=== PATIENT | female | born 1940 | race African-American/Black ===

== ENCOUNTER 2019-06-09 12:53 | Observation (INO) ==
[2019-06-09 13:58] LABS: Basophils % 0.3 % (0.0-0.8); Eosinophils % 0.3 % (0.00-10.9); Hematocrit 39.8 VOL% (35.7-47.0); Hemoglobin 13.3 GM/DL (12.0-16.0); Immature Granulocytes % 0.5 %; Immature Granulocytes Absolute 0.05 #; Lymphocytes # 2.2 10*3/uL (1.4-4.0); Lymphocytes % 21.2 % (21.3-54.2); Mean Corpuscular HGB Conc 33.4 GM/DL (32-36); Mean Corpuscular Volume 96.8 FL (87-102); Mean Platelet Volume 11.3 FL (9.6-12.0); Monocytes % 9.2 % (1.7-12.7); Neutrophils % 68.5 % (38.7-73.9); Platelet Count 166 T/CUMM (130-400); Red Blood Count 4.11 MC/CUMM (3.8-5.5); Red Cell Distribution Width 14.7 % (9.3-17.3); White Blood Count 10.5 T/CUMM (4-12)
[2019-06-09 14:16] LABS: INR 1.1; PT Patient Result 11.8 SECS
[2019-06-09 14:18] LABS: Albumin 3.2 G/DL (3.4-5.0); Bilirubin,Total 0.7 MG/DL (0.2-1.0); Osmolality,Calculated 290.7 MOS/KG (273-304); Total Protein 5.9 G/DL (6.4-8.3)
[2019-06-09] MEDS ORDERED: ALBUTEROL 2.5 MG/3 ML NEB RESP TX STA ×2 (16:16→17:21)
[2019-06-09] MEDS ORDERED: methylPREDNISolone SOD SUC 125 MG/2 ML VIAL IV STA (16:17)
[2019-06-09] MEDS ORDERED: ENOXAPARIN 100 MG/ML SYRINGE SUBCUT STA (17:36)
[2019-06-09] MEDS ORDERED: ALBUTEROL 2.5 MG/3 ML NEB RESP TX PRN (17:39)
[2019-06-09] MEDS ORDERED: ONDANSETRON 4 MG/2 ML VIAL IV PRN (18:41)
[2019-06-09] MEDS ORDERED: ACETAMINOPHEN 325 MG TABLET PO PRN (18:41)
[2019-06-09] MEDS ORDERED: SODIUM CHLORIDE 0.9% 1,000 ML IV SCH (18:41)
[2019-06-09] MEDS ORDERED: POLYVINYL ALCOHOL 1.4% OPH SOLN 15 ML BOTTLE BOTH EYES PRN (20:11)
[2019-06-09] MEDS ORDERED: LIFITEGRAST BOTH EYES SCH (21:00)
[2019-06-09] MEDS: BUDESONIDE/FORMOTEROL 160-4.5 INHALER 6 GM INH SCH (22:18)
[2019-06-09] MEDS: DOCUSATE SODIUM 100 MG CAPSULE PO SCH (22:19)
[2019-06-09] MEDS: MONTELUKAST 10 MG TABLET PO SCH (22:19)
[2019-06-09] MEDS: AZITHROMYCIN INJ 250 MG in SODIUM CHLORIDE 0.9% 250 ML IV SCH (22:19)
[2019-06-10] MEDS: ALBUTEROL/IPRATROPIUM 3 ML NEB RESP TX SCH ×4 (00:08→18:59)
[2019-06-10] MEDS ORDERED: BENZOCAINE/MENTHOL LOZENGE 18/BOX PO PRN (02:17)
[2019-06-10] MEDS: methylPREDNISolone SOD SUC 40 MG/1 ML VIAL IV SCH ×3 (03:18→15:33)
[2019-06-10 07:24] LABS: Calcium 8.2 MG/DL (8.5-10.1)
[2019-06-10] MEDS: SPIRONOLACTONE 25 MG TABLET PO SCH (08:58)
[2019-06-10] MEDS: CALCIUM CARBONATE CHEW 500 MG TABLET PO SCH (08:58)
[2019-06-10] MEDS: PANTOPRAZOLE 40 MG TABLET PO SCH (08:58)
[2019-06-10] MEDS: CLOPIDOGREL 75 MG TABLET PO SCH (08:58)
[2019-06-10] MEDS: ASPIRIN EC 81 MG TABLET PO SCH (08:58)
[2019-06-10] MEDS: DOCUSATE SODIUM 100 MG CAPSULE PO SCH ×2 (08:58→21:15)
[2019-06-10] MEDS: tiZANidine 4 MG TABLET PO SCH (08:58)
[2019-06-10] MEDS: CETIRIZINE 10 MG TABLET PO SCH (08:59)
[2019-06-10] MEDS: METOPROLOL SUCCINATE XL 25 MG TABLET PO SCH (08:59)
[2019-06-10] MEDS: FLUTICASONE 50 MCG NASAL SPRAY 16 GM BOTTLE BOTH NARES SCH (09:01)
[2019-06-10] MEDS: BUDESONIDE/FORMOTEROL 160-4.5 INHALER 6 GM INH SCH ×2 (09:08→22:27)
[2019-06-10] MEDS ORDERED: FUROSEMIDE 40 MG/4 ML VIAL IV ONE (14:19)
[2019-06-10] MEDS ORDERED: MAGNESIUM SULF RIDER 2 GM in PREMIX 1 EACH IV PRN (14:21)
[2019-06-10] MEDS ORDERED: POTASSIUM CHLORIDE RIDER 10 MEQ in PREMIX 1 EACH IV PRN (14:21)
[2019-06-10] MEDS: MONTELUKAST 10 MG TABLET PO SCH (21:15)
[2019-06-10] MEDS: AZITHROMYCIN INJ 250 MG in SODIUM CHLORIDE 0.9% 250 ML IV SCH (21:15)
[2019-06-11] MEDS ORDERED: DIAZEPAM 5 MG TABLET PO ONE (00:01)
[2019-06-11] MEDS ORDERED: diphenhydrAMINE CAP 25 MG CAPSULE PO ONE (00:01)
[2019-06-11] MEDS: ALBUTEROL/IPRATROPIUM 3 ML NEB RESP TX SCH ×4 (00:13→21:15)
[2019-06-11] MEDS: methylPREDNISolone SOD SUC 40 MG/1 ML VIAL IV SCH ×3 (01:21→22:09)
[2019-06-11 03:07] LABS: Basophils % 0.1 % (0.0-0.8); Hematocrit 39.7 VOL% (35.7-47.0); Immature Granulocytes % 0.6 %; Immature Granulocytes Absolute 0.11 #; Lymphocytes # 1.3 10*3/uL (1.4-4.0); Lymphocytes % 7.5 % (21.3-54.2); Mean Corpuscular HGB Conc 32.7 GM/DL (32-36); Mean Corpuscular Volume 97.1 FL (87-102); Mean Platelet Volume 11.3 FL (9.6-12.0); Monocytes % 5.2 % (1.7-12.7); Neutrophils % 86.6 % (38.7-73.9); Platelet Count 176 T/CUMM (130-400); Red Blood Count 4.09 MC/CUMM (3.8-5.5); Red Cell Distribution Width 14.8 % (9.3-17.3); White Blood Count 17.7 T/CUMM (4-12)
[2019-06-11 03:23] LABS: Calcium 8.5 MG/DL (8.5-10.1); Osmolality,Calculated 290.8 MOS/KG (273-304)
[2019-06-11] MEDS: ASPIRIN EC 81 MG TABLET PO SCH (09:23)
[2019-06-11] MEDS: METOPROLOL SUCCINATE XL 25 MG TABLET PO SCH (09:23)
[2019-06-11] MEDS: CLOPIDOGREL 75 MG TABLET PO SCH (09:23)
[2019-06-11] MEDS: PANTOPRAZOLE 40 MG TABLET PO SCH (09:23)
[2019-06-11] MEDS: DOCUSATE SODIUM 100 MG CAPSULE PO SCH ×2 (09:31→22:09)
[2019-06-11] MEDS: BUDESONIDE/FORMOTEROL 160-4.5 INHALER 6 GM INH SCH ×2 (09:31→22:15)
[2019-06-11] MEDS: FLUTICASONE 50 MCG NASAL SPRAY 16 GM BOTTLE BOTH NARES SCH (09:31)
[2019-06-11] MEDS: SPIRONOLACTONE 25 MG TABLET PO SCH (09:32)
[2019-06-11] MEDS: CALCIUM CARBONATE CHEW 500 MG TABLET PO SCH (09:32)
[2019-06-11] MEDS: tiZANidine 4 MG TABLET PO SCH (09:33)
[2019-06-11] MEDS: CETIRIZINE 10 MG TABLET PO SCH (09:33)
[2019-06-11] MEDS ORDERED: DIAZEPAM 5 MG TABLET ONE (10:14)
[2019-06-11] MEDS ORDERED: diphenhydrAMINE CAP 25 MG CAPSULE ONE (10:15)
[2019-06-11] MEDS ORDERED: HYDROmorphone 2 MG/1 ML VIAL ONE (10:33)
[2019-06-11] MEDS ORDERED: MIDAZOLAM 2 MG/2 ML VIAL ONE (10:33)
[2019-06-11] MEDS ORDERED: LIDOCAINE 1% 20 ML VIAL ONE (10:34)
[2019-06-11] MEDS: MONTELUKAST 10 MG TABLET PO SCH (22:09)
[2019-06-11] MEDS: AZITHROMYCIN INJ 250 MG in SODIUM CHLORIDE 0.9% 250 ML IV SCH (22:13)
[2019-06-12] MEDS: ALBUTEROL/IPRATROPIUM 3 ML NEB RESP TX SCH ×3 (00:48→13:47)
[2019-06-12] MEDS: methylPREDNISolone SOD SUC 40 MG/1 ML VIAL IV SCH ×2 (06:14→12:27)
[2019-06-12] MEDS: CALCIUM CARBONATE CHEW 500 MG TABLET PO SCH (09:33)
[2019-06-12] MEDS: tiZANidine 4 MG TABLET PO SCH (09:33)
[2019-06-12] MEDS: CLOPIDOGREL 75 MG TABLET PO SCH (09:34)
[2019-06-12] MEDS: DOCUSATE SODIUM 100 MG CAPSULE PO SCH (09:34)
[2019-06-12] MEDS: CETIRIZINE 10 MG TABLET PO SCH (09:34)
[2019-06-12] MEDS: METOPROLOL SUCCINATE XL 25 MG TABLET PO SCH (09:34)
[2019-06-12] MEDS: PANTOPRAZOLE 40 MG TABLET PO SCH (09:34)
[2019-06-12] MEDS: ASPIRIN EC 81 MG TABLET PO SCH (09:34)
[2019-06-12] MEDS: SPIRONOLACTONE 25 MG TABLET PO SCH (09:34)
[2019-06-12] MEDS: FLUTICASONE 50 MCG NASAL SPRAY 16 GM BOTTLE BOTH NARES SCH (09:35)
[2019-06-12] MEDS: BUDESONIDE/FORMOTEROL 160-4.5 INHALER 6 GM INH SCH (09:35)
[2019-06-12 12:38] VITALS: BP 140/69
== END 2019-06-12 16:20 | disposition home health service (06) ==
LOC: N.ED 12:53 → N.EDINP 12:53 → N.TELEN 17:48
PROVIDERS: ADMIT Family Medicine; ATTEND Family Medicine
PROC: CLCCHCL (ICD-10-PCS; 2019-06-11 10:45)

== ENCOUNTER 2019-10-20 11:09 | Inpatient (IN) ==
[2019-10-20] MEDS ORDERED: ONDANSETRON 4 MG/2 ML VIAL IV STA (11:38)
[2019-10-20] MEDS ORDERED: FUROSEMIDE 40 MG/4 ML VIAL IV STA (11:38)
[2019-10-20] MEDS ORDERED: DILTIAZEM 50 MG/10 ML VIAL IV STA (11:49)
[2019-10-20 11:59] LABS: Basophils % 0.3 % (0.0-0.8); Eosinophils % 0.1 % (0.00-10.9); Hematocrit 46.5 VOL% (35.7-47.0); Hemoglobin 15.5 GM/DL (12.0-16.0); Immature Granulocytes % 0.5 %; Immature Granulocytes Absolute 0.07 #; Lymphocytes # 2.7 10*3/uL (1.4-4.0); Lymphocytes % 19.8 % (21.3-54.2); Mean Corpuscular HGB Conc 33.3 GM/DL (32-36); Mean Corpuscular Volume 97.9 FL (87-102); Mean Platelet Volume 11.2 FL (9.6-12.0); Monocytes % 7.8 % (1.7-12.7); NRBC # 0.02 10*3/uL; Neutrophils % 71.5 % (38.7-73.9); Platelet Count 146 T/CUMM (130-400); Red Blood Count 4.75 MC/CUMM (3.8-5.5); Red Cell Distribution Width 15.5 % (9.3-17.3); White Blood Count 13.4 T/CUMM (4-12)
[2019-10-20] MEDS ORDERED: dilTIAZem Drip 125 MG/125 ML PREMIX IV SCH (12:00)
[2019-10-20 12:14] LABS: INR 1.3; PT Patient Result 14.3 SECS (9.6-12.2)
[2019-10-20 12:20] LABS: Albumin 3.8 G/DL (3.4-5.0); Bilirubin,Total 1.1 MG/DL (0.2-1.0); Calcium 8.5 MG/DL (8.5-10.1); Osmolality,Calculated 278.7 MOS/KG (273-304); Total Protein 6.7 G/DL (6.4-8.3)
[2019-10-20 14:37] LABS: Amorphous Crystals,Urine Occasional /HPF (Few); Apearance,Urine CLEAR (Clear); Bacteria,Urine Occasional /HPF (Few); Bilirubin,Urine Negative (Negative); Blood, Urine Negative (Negative); Glucose,Urine (UA) Negative (Negative); Hyaline Casts,Urine 7 /LPF (0-3); Ketones,Urine Negative (Negative); Mucus,Urine Occasional /LPF (Occasional); Nitrite,Urine Negative (Negative); Protein,Urine 30 MG/DL; RBC,Urine 3 /HPF (0-4); Squamous Epithelial Cell,Urine Occasional /HPF (0-10); Urine Color Straw (Yellow); Urine Specific Gravity 1.006 (1.001-1.035); Urine Urobilinogen < 2.0 EU/DL (0.2-1.0); WBC,Urine <1 /HPF (0-6)
[2019-10-20] MEDS ORDERED: ENOXAPARIN 100 MG/ML SYRINGE SUBCUT STA (15:19)
[2019-10-20] MEDS ORDERED: SODIUM CHLORIDE 0.9% 1,000 ML IV SCH (17:54)
[2019-10-20] MEDS ORDERED: MORPHINE 4 MG/1 ML VIAL IV PRN (17:54)
[2019-10-20] MEDS ORDERED: ACETAMINOPHEN 325 MG TABLET PO PRN (17:54)
[2019-10-20] MEDS ORDERED: tiZANidine 4 MG TABLET PO PRN (17:54)
[2019-10-20] MEDS ORDERED: DENOSUMAB 60 MG/ML SYRINGE SUBCUT SCH (17:54)
[2019-10-20] MEDS ORDERED: DICLOFENAC 1% GEL 100 GM TUBE TOP PRN (17:54)
[2019-10-20] MEDS ORDERED: POLYVINYL ALCOHOL 1.4% OPH SOLN 15 ML BOTTLE BOTH EYES PRN (17:54)
[2019-10-20] MEDS ORDERED: ALBUTEROL 2.5 MG/3 ML NEB RESP TX PRN (17:54)
[2019-10-20] MEDS ORDERED: [UNRECOGNIZED DRUG - OTHER] PO SCH (19:00)
[2019-10-20] MEDS: dilTIAZem Drip 125 MG/125 ML PREMIX IV SCH (20:29)
[2019-10-20] MEDS: BUDESONIDE/FORMOTEROL 160-4.5 INHALER 6 GM INH SCH (20:30)
[2019-10-20] MEDS: MONTELUKAST 10 MG TABLET PO SCH (20:33)
[2019-10-20] MEDS: DOCUSATE SODIUM 100 MG CAPSULE PO SCH (20:33)
[2019-10-21] MEDS: ALBUTEROL/IPRATROPIUM 3 ML NEB RESP TX PRN ×2 (00:58→15:54)
[2019-10-21 05:58] LABS: Basophils % 0.3 % (0.0-0.8); Eosinophils % 0.1 % (0.00-10.9); Hematocrit 42.9 VOL% (35.7-47.0); Hemoglobin 14.3 GM/DL (12.0-16.0); Immature Granulocytes % 0.5 %; Immature Granulocytes Absolute 0.06 #; Lymphocytes # 2.7 10*3/uL (1.4-4.0); Lymphocytes % 23.5 % (21.3-54.2); Mean Corpuscular HGB Conc 33.3 GM/DL (32-36); Mean Corpuscular Volume 97.7 FL (87-102); Mean Platelet Volume 11.6 FL (9.6-12.0); Monocytes % 9.1 % (1.7-12.7); NRBC # 0.04 10*3/uL; Neutrophils % 66.5 % (38.7-73.9); Platelet Count 138 T/CUMM (130-400); Red Blood Count 4.39 MC/CUMM (3.8-5.5); Red Cell Distribution Width 15.7 % (9.3-17.3); White Blood Count 11.6 T/CUMM (4-12)
[2019-10-21 06:21] LABS: Albumin 3.5 G/DL (3.4-5.0); Bilirubin,Total 0.9 MG/DL (0.2-1.0); Calcium 8.1 MG/DL (8.5-10.1); Osmolality,Calculated 283.4 MOS/KG (273-304); Risk Ratio 3.41; Total Protein 6.6 G/DL (6.4-8.3); VLDL CHOLESTEROL 14.8 MG/DL
[2019-10-21 08:56] LABS: CKMB % 2.8 %
[2019-10-21] MEDS: CETIRIZINE 10 MG TABLET PO SCH (08:57)
[2019-10-21] MEDS: ASPIRIN EC 81 MG TABLET PO SCH (08:57)
[2019-10-21] MEDS: NEBIVOLOL 10 MG TABLET PO SCH (08:57)
[2019-10-21] MEDS: DOCUSATE SODIUM 100 MG CAPSULE PO SCH ×2 (08:57→21:22)
[2019-10-21] MEDS: SPIRONOLACTONE 25 MG TABLET PO SCH (08:57)
[2019-10-21] MEDS: PANTOPRAZOLE 40 MG TABLET PO SCH (08:57)
[2019-10-21 08:58] LABS: Troponin I 0.129 NG/ML (0.00-0.045)
[2019-10-21] MEDS: CALCIUM CARBONATE CHEW 500 MG TABLET PO SCH (08:58)
[2019-10-21] MEDS: FLUTICASONE 50 MCG NASAL SPRAY 16 GM BOTTLE BOTH NARES SCH (08:58)
[2019-10-21] MEDS: CHOLECALCIFEROL 1,000 UNIT TABLET PO SCH (08:58)
[2019-10-21] MEDS: BUDESONIDE/FORMOTEROL 160-4.5 INHALER 6 GM INH SCH ×2 (08:58→21:22)
[2019-10-21] MEDS ORDERED: CARBAMIDE PEROXIDE BOTH EARS SCH (09:00)
[2019-10-21] MEDS ORDERED: [UNRECOGNIZED DRUG - OTHER] PO SCH (09:00)
[2019-10-21] MEDS ORDERED: ENOXAPARIN 40 MG/0.4 ML SYRINGE SUBCUT SCH (09:00)
[2019-10-21] MEDS ORDERED: CRANBERRY EXTRACT VITAMIN C PO SCH (09:00)
[2019-10-21] MEDS ORDERED: [UNRECOGNIZED DRUG - OTHER] PO SCH (09:00)
[2019-10-21 11:39] LABS: CKMB % 2.8 %
[2019-10-21 11:41] LABS: Troponin I 0.125 NG/ML (0.00-0.045)
[2019-10-21] MEDS: dilTIAZem Drip 125 MG/125 ML PREMIX IV SCH (21:20)
[2019-10-21] MEDS: APIXABAN 5 MG TABLET PO SCH (21:21)
[2019-10-21] MEDS: DILTIAZEM CD 120 MG CAPSULE PO SCH (21:21)
[2019-10-21] MEDS: MONTELUKAST 10 MG TABLET PO SCH (21:24)
[2019-10-21] MEDS: BUMETANIDE 1 MG/4 ML VIAL IV SCH (21:25)
[2019-10-21] MEDS: ONDANSETRON 4 MG/2 ML VIAL IV PRN (23:36)
[2019-10-21] MEDS: BISACODYL 5 MG TABLET PO PRN (23:48)
[2019-10-22] MEDS: ALBUTEROL/IPRATROPIUM 3 ML NEB RESP TX PRN ×5 (04:00→23:48)
[2019-10-22 07:00] LABS: Basophils % 0.2 % (0.0-0.8); Hematocrit 45.6 VOL% (35.7-47.0); Hemoglobin 15.4 GM/DL (12.0-16.0); Immature Granulocytes % 0.8 %; Immature Granulocytes Absolute 0.13 #; Lymphocytes # 1.7 10*3/uL (1.4-4.0); Lymphocytes % 10.6 % (21.3-54.2); Mean Corpuscular HGB Conc 33.8 GM/DL (32-36); Mean Corpuscular Volume 97.9 FL (87-102); Mean Platelet Volume 12.2 FL (9.6-12.0); Monocytes % 6.9 % (1.7-12.7); NRBC # 0.07 10*3/uL; Neutrophils % 81.5 % (38.7-73.9); Platelet Count 128 T/CUMM (130-400); Red Blood Count 4.66 MC/CUMM (3.8-5.5); Red Cell Distribution Width 15.9 % (9.3-17.3); White Blood Count 16.3 T/CUMM (4-12)
[2019-10-22 07:06] LABS: Platelet Estimate Adequate
[2019-10-22 07:07] LABS: Anisocytosis Slight
[2019-10-22 07:08] LABS: Calcium 8.3 MG/DL (8.5-10.1); Osmolality,Calculated 280.7 MOS/KG (273-304)
[2019-10-22] MEDS: PANTOPRAZOLE 40 MG TABLET PO SCH (09:07)
[2019-10-22] MEDS: CHOLECALCIFEROL 1,000 UNIT TABLET PO SCH (09:08)
[2019-10-22] MEDS: NEBIVOLOL 10 MG TABLET PO SCH (09:08)
[2019-10-22] MEDS: DILTIAZEM CD 120 MG CAPSULE PO SCH ×2 (09:08→20:53)
[2019-10-22] MEDS: DOCUSATE SODIUM 100 MG CAPSULE PO SCH ×2 (09:09→20:53)
[2019-10-22] MEDS: ASPIRIN EC 81 MG TABLET PO SCH (09:09)
[2019-10-22] MEDS: CALCIUM CARBONATE CHEW 500 MG TABLET PO SCH (09:09)
[2019-10-22] MEDS: CETIRIZINE 10 MG TABLET PO SCH (09:09)
[2019-10-22] MEDS: SPIRONOLACTONE 25 MG TABLET PO SCH (09:10)
[2019-10-22] MEDS: BUMETANIDE 1 MG/4 ML VIAL IV SCH ×2 (09:10→17:00)
[2019-10-22] MEDS: APIXABAN 5 MG TABLET PO SCH ×2 (09:10→20:54)
[2019-10-22] MEDS: FLUTICASONE 50 MCG NASAL SPRAY 16 GM BOTTLE BOTH NARES SCH (09:13)
[2019-10-22] MEDS: BUDESONIDE/FORMOTEROL 160-4.5 INHALER 6 GM INH SCH ×2 (09:14→20:54)
[2019-10-22] MEDS: MONTELUKAST 10 MG TABLET PO SCH (20:53)
[2019-10-22] MEDS: dilTIAZem Drip 125 MG/125 ML PREMIX IV SCH (20:54)
[2019-10-23] MEDS: ALBUTEROL/IPRATROPIUM 3 ML NEB RESP TX PRN ×3 (03:41→22:37)
[2019-10-23] MEDS: BUDESONIDE/FORMOTEROL 160-4.5 INHALER 6 GM INH SCH ×2 (09:10→21:20)
[2019-10-23] MEDS: FLUTICASONE 50 MCG NASAL SPRAY 16 GM BOTTLE BOTH NARES SCH (09:10)
[2019-10-23] MEDS ORDERED: ETOMIDATE 40 MG/20 ML VIAL IV ONE (14:48)
[2019-10-23] MEDS ORDERED: propofoL 200 MG/20 ML VIAL IV ONE (14:48)
[2019-10-23] MEDS ORDERED: LIDOCAINE 2% 5 ML VIAL ONE (14:48)
[2019-10-23] MEDS: BUMETANIDE 1 MG/4 ML VIAL IV SCH ×2 (17:04→17:55)
[2019-10-23] MEDS: APIXABAN 5 MG TABLET PO SCH ×2 (17:05→21:20)
[2019-10-23] MEDS: DOCUSATE SODIUM 100 MG CAPSULE PO SCH ×2 (17:05→21:20)
[2019-10-23] MEDS: NEBIVOLOL 10 MG TABLET PO SCH (17:22)
[2019-10-23] MEDS: ASPIRIN EC 81 MG TABLET PO SCH (17:22)
[2019-10-23] MEDS: CALCIUM CARBONATE CHEW 500 MG TABLET PO SCH (17:22)
[2019-10-23] MEDS: PANTOPRAZOLE 40 MG TABLET PO SCH (17:22)
[2019-10-23] MEDS: CHOLECALCIFEROL 1,000 UNIT TABLET PO SCH (17:23)
[2019-10-23] MEDS: CETIRIZINE 10 MG TABLET PO SCH (17:23)
[2019-10-23] MEDS: DILTIAZEM CD 120 MG CAPSULE PO SCH (18:21)
[2019-10-23] MEDS: SPIRONOLACTONE 25 MG TABLET PO SCH (18:21)
[2019-10-23] MEDS: ONDANSETRON 4 MG/2 ML VIAL IV PRN (21:15)
[2019-10-23] MEDS: MONTELUKAST 10 MG TABLET PO SCH (21:20)
[2019-10-23] MEDS: AMIODARONE 200 MG TABLET PO SCH (21:20)
[2019-10-23] MEDS: BISACODYL 5 MG TABLET PO PRN (21:40)
[2019-10-24] MEDS: ALBUTEROL/IPRATROPIUM 3 ML NEB RESP TX PRN ×3 (02:32→12:12)
[2019-10-24 04:46] LABS: Basophils % 0.1 % (0.0-0.8); Eosinophils % 0.1 % (0.00-10.9); Hematocrit 47.3 VOL% (35.7-47.0); Hemoglobin 15.8 GM/DL (12.0-16.0); Immature Granulocytes Absolute 0.15 #; Lymphocytes % 12.7 % (21.3-54.2); Mean Corpuscular HGB Conc 33.4 GM/DL (32-36); Mean Corpuscular Volume 96.9 FL (87-102); Mean Platelet Volume 11.3 FL (9.6-12.0); Monocytes % 11.4 % (1.7-12.7); NRBC # 0.07 10*3/uL; Neutrophils % 74.7 % (38.7-73.9); Platelet Count 150 T/CUMM (130-400); Red Blood Count 4.88 MC/CUMM (3.8-5.5); Red Cell Distribution Width 16.6 % (9.3-17.3); White Blood Count 15.5 T/CUMM (4-12)
[2019-10-24 05:21] LABS: Calcium 8.5 MG/DL (8.5-10.1); Osmolality,Calculated 279.2 MOS/KG (273-304)
[2019-10-24] MEDS: AMIODARONE 200 MG TABLET PO SCH (08:03)
[2019-10-24] MEDS: ASPIRIN EC 81 MG TABLET PO SCH (08:03)
[2019-10-24] MEDS: CALCIUM CARBONATE CHEW 500 MG TABLET PO SCH (08:03)
[2019-10-24] MEDS: APIXABAN 5 MG TABLET PO SCH (08:03)
[2019-10-24] MEDS: NEBIVOLOL 10 MG TABLET PO SCH (08:03)
[2019-10-24] MEDS: CETIRIZINE 10 MG TABLET PO SCH (08:03)
[2019-10-24] MEDS: DOCUSATE SODIUM 100 MG CAPSULE PO SCH (08:03)
[2019-10-24] MEDS: BUMETANIDE 1 MG/4 ML VIAL IV SCH ×2 (08:03→15:02)
[2019-10-24] MEDS: PANTOPRAZOLE 40 MG TABLET PO SCH (08:04)
[2019-10-24] MEDS: CHOLECALCIFEROL 1,000 UNIT TABLET PO SCH (08:05)
[2019-10-24] MEDS: FLUTICASONE 50 MCG NASAL SPRAY 16 GM BOTTLE BOTH NARES SCH (08:13)
[2019-10-24] MEDS: BUDESONIDE/FORMOTEROL 160-4.5 INHALER 6 GM INH SCH (08:13)
[2019-10-24] MEDS ORDERED: SPIRONOLACTONE 25 MG TABLET PO SCH (09:00)
[2019-10-24 14:07] VITALS: BP 109/58
[2019-10-25] MEDS ORDERED: AMIODARONE 200 MG TABLET PO SCH (09:00)
== END 2019-10-24 17:02 | disposition home health service (06) | DRG 291 ==
LOC: N.ED 11:09 → N.EDINP 11:09 → N.TELES 17:48
PROVIDERS: ADMIT Family Medicine; ATTEND Family Medicine

== ENCOUNTER 2019-12-04 13:36 | Inpatient (IN) ==
[2019-12-04] MEDS ORDERED: MAGNESIUM SULF RIDER 2 GM in PREMIX 1 EACH IV PRN (14:23)
[2019-12-04] MEDS ORDERED: ACETAMINOPHEN 325 MG TABLET PO PRN (14:23)
[2019-12-04] MEDS ORDERED: MAGNESIUM SULF RIDER 4 GM in PREMIX 1 EACH IV PRN (14:23)
[2019-12-04] MEDS ORDERED: DOCUSATE SODIUM 100 MG CAPSULE PO PRN (14:34)
[2019-12-04] MEDS ORDERED: POTASSIUM CHLORIDE 20 MEQ TABLET PO PRN (14:34)
[2019-12-04] MEDS ORDERED: diphenhydrAMINE CAP 25 MG CAPSULE PO PRN (14:34)
[2019-12-04] MEDS ORDERED: ONDANSETRON 4 MG/2 ML VIAL IV PRN (14:34)
[2019-12-04 14:56] LABS: Basophils % 0.3 % (0.0-0.8); Eosinophils # 0.1 10*3/uL (0.0-0.87); Eosinophils % 0.6 % (0.00-10.9); Hematocrit 47.4 VOL% (35.7-47.0); Hemoglobin 15.9 GM/DL (12.0-16.0); Immature Granulocytes % 1.5 %; Immature Granulocytes Absolute 0.16 #; Lymphocytes # 3.1 10*3/uL (1.4-4.0); Lymphocytes % 28.3 % (21.3-54.2); Mean Corpuscular HGB Conc 33.5 GM/DL (32-36); Mean Platelet Volume 10.1 FL (9.6-12.0); Monocytes % 8.3 % (1.7-12.7); Platelet Count 184 T/CUMM (130-400); Red Blood Count 4.79 MC/CUMM (3.8-5.5); Red Cell Distribution Width 14.7 % (9.3-17.3)
[2019-12-04] MEDS ORDERED: tiZANidine 4 MG TABLET PO PRN (15:13)
[2019-12-04] MEDS ORDERED: DICLOFENAC 1% GEL 100 GM TUBE TOP PRN (15:13)
[2019-12-04] MEDS ORDERED: PROPYLENE GLYCOL BOTH EYES PRN (15:13)
[2019-12-04] MEDS ORDERED: CARBAMIDE PEROXIDE BOTH EARS PRN (15:13)
[2019-12-04 15:29] LABS: Albumin 3.6 G/DL (3.4-5.0); Bilirubin,Total 0.9 MG/DL (0.2-1.0); Calcium 9.7 MG/DL (8.5-10.1); Osmolality,Calculated 279.8 MOS/KG (273-304); Thyroid Stimulating Hormone 1.29 uIU/ml (0.358-3.74); Total Protein 7.5 G/DL (6.4-8.3)
[2019-12-04] MEDS ORDERED: DENOSUMAB 60 MG/ML SYRINGE SUBCUT SCH (15:30)
[2019-12-04] MEDS: MAGNESIUM HYDROXIDE SUSP 30 ML UDCUP PO PRN (18:05)
[2019-12-04 18:28] LABS: Apearance,Urine CLEAR (Clear); Bacteria,Urine Occasional /HPF (Few); Bilirubin,Urine Negative (Negative); Blood, Urine Large mg/dL (Negative); Glucose,Urine (UA) Negative (Negative); Hyaline Casts,Urine 26 /LPF (0-3); Ketones,Urine Negative (Negative); Nitrite,Urine Negative (Negative); Protein,Urine Negative; Squamous Epithelial Cell,Urine Occasional /HPF (0-10); Urine Color Yellow (Yellow); Urine Specific Gravity 1.009 (1.001-1.035); Urine Urobilinogen < 2.0 EU/DL (0.2-1.0); WBC,Urine 1 /HPF (0-6)
[2019-12-04] MEDS ORDERED: ALBUTEROL 2.5 MG/3 ML NEB RESP TX PRN (19:00)
[2019-12-04] MEDS: APIXABAN 2.5 MG TABLET PO SCH (21:25)
[2019-12-04] MEDS: MONTELUKAST 10 MG TABLET PO SCH (21:25)
[2019-12-04] MEDS: [UNRECOGNIZED DRUG - OTHER] PO SCH (21:25)
[2019-12-04] MEDS: BUDESONIDE/FORMOTEROL 160-4.5 INHALER 6 GM INH SCH (21:26)
[2019-12-04] MEDS: MUPIROCIN 2% OINT 22 GM TUBE TOP SCH (21:26)
[2019-12-05 04:46] LABS: Basophils % 0.3 % (0.0-0.8); Eosinophils # 0.1 10*3/uL (0.0-0.87); Eosinophils % 0.9 % (0.00-10.9); Hematocrit 45.4 VOL% (35.7-47.0); Hemoglobin 15.3 GM/DL (12.0-16.0); Immature Granulocytes % 0.5 %; Immature Granulocytes Absolute 0.05 #; Lymphocytes # 3.1 10*3/uL (1.4-4.0); Mean Corpuscular HGB Conc 33.7 GM/DL (32-36); Mean Corpuscular Volume 98.1 FL (87-102); Mean Platelet Volume 10.5 FL (9.6-12.0); Monocytes % 10.3 % (1.7-12.7); Platelet Count 175 T/CUMM (130-400); Red Blood Count 4.63 MC/CUMM (3.8-5.5); Red Cell Distribution Width 14.9 % (9.3-17.3); White Blood Count 9.9 T/CUMM (4-12)
[2019-12-05 05:17] LABS: Albumin 3.2 G/DL (3.4-5.0); Bilirubin,Total 0.7 MG/DL (0.2-1.0); Osmolality,Calculated 284.5 MOS/KG (273-304); Total Protein 6.9 G/DL (6.4-8.3)
[2019-12-05] MEDS ORDERED: POTASSIUM CHLORIDE 20 MEQ TABLET PO ONE (07:37)
[2019-12-05] MEDS ORDERED: AMIODARONE 200 MG TABLET PO SCH (09:00)
[2019-12-05] MEDS: CETIRIZINE 10 MG TABLET PO SCH (09:33)
[2019-12-05] MEDS: PANTOPRAZOLE 40 MG TABLET PO SCH (09:33)
[2019-12-05] MEDS: CHOLECALCIFEROL 1,000 UNIT TABLET PO SCH (09:33)
[2019-12-05] MEDS: ASPIRIN EC 81 MG TABLET PO SCH (09:33)
[2019-12-05] MEDS: CALCIUM CARBONATE CHEW 500 MG TABLET PO SCH (09:34)
[2019-12-05] MEDS: APIXABAN 2.5 MG TABLET PO SCH ×2 (09:34→20:20)
[2019-12-05] MEDS: FLUTICASONE 50 MCG NASAL SPRAY 16 GM BOTTLE BOTH NARES SCH (09:35)
[2019-12-05] MEDS: BUDESONIDE/FORMOTEROL 160-4.5 INHALER 6 GM INH SCH ×2 (09:36→20:19)
[2019-12-05] MEDS: [UNRECOGNIZED DRUG - OTHER] PO SCH (09:36)
[2019-12-05] MEDS ORDERED: METOPROLOL TARTRATE 5 MG/5 ML VIAL IV ONE ×2 (12:58→13:00)
[2019-12-05] MEDS ORDERED: AMIODARONE 150 MG/3 ML VIAL ONE (13:02)
[2019-12-05] MEDS ORDERED: AMIODARONE INJ 150 MG in DEXTROSE 5% 100 ML IV ONE (13:18)
[2019-12-05] MEDS ORDERED: ATROPINE 1 MG/10 ML SYRINGE ONE (13:33)
[2019-12-05] MEDS ORDERED: ALBUTEROL 2.5 MG/3 ML NEB RESP TX ONE (13:39)
[2019-12-05] MEDS ORDERED: ONDANSETRON 4 MG/2 ML VIAL ONE (13:48)
[2019-12-05] MEDS ORDERED: ONDANSETRON 4 MG/2 ML VIAL IV ONE (13:55)
[2019-12-05] MEDS ORDERED: DOPamine 800 MG/250 ML PREMIX IV PRN (14:59)
[2019-12-05] MEDS: TORSEMIDE 20 MG TABLET PO SCH (15:47)
[2019-12-05] MEDS: MUPIROCIN 2% OINT 22 GM TUBE TOP SCH ×2 (15:47→20:19)
[2019-12-05] MEDS: SPIRONOLACTONE 25 MG TABLET PO SCH (15:48)
[2019-12-05] MEDS: [UNRECOGNIZED DRUG - OTHER] PO SCH (20:20)
[2019-12-05] MEDS: MONTELUKAST 10 MG TABLET PO SCH (20:20)
[2019-12-06 05:22] LABS: Basophils % 0.3 % (0.0-0.8); Eosinophils % 0.1 % (0.00-10.9); Hematocrit 47.4 VOL% (35.7-47.0); Hemoglobin 15.7 GM/DL (12.0-16.0); Immature Granulocytes % 0.4 %; Immature Granulocytes Absolute 0.06 #; Lymphocytes # 2.2 10*3/uL (1.4-4.0); Lymphocytes % 16.4 % (21.3-54.2); Mean Corpuscular HGB Conc 33.1 GM/DL (32-36); Mean Corpuscular Volume 100.2 FL (87-102); Monocytes % 9.4 % (1.7-12.7); NRBC # 0.02 10*3/uL; Neutrophils % 73.4 % (38.7-73.9); Platelet Count 173 T/CUMM (130-400); Red Blood Count 4.73 MC/CUMM (3.8-5.5); Red Cell Distribution Width 15.3 % (9.3-17.3); White Blood Count 13.6 T/CUMM (4-12)
[2019-12-06 05:38] LABS: Calcium 8.9 MG/DL (8.5-10.1); Osmolality,Calculated 277.2 MOS/KG (273-304)
[2019-12-06] MEDS: TORSEMIDE 20 MG TABLET PO SCH (08:00)
[2019-12-06] MEDS: FLUTICASONE 50 MCG NASAL SPRAY 16 GM BOTTLE BOTH NARES SCH (08:01)
[2019-12-06] MEDS: CALCIUM CARBONATE CHEW 500 MG TABLET PO SCH (08:01)
[2019-12-06] MEDS: CETIRIZINE 10 MG TABLET PO SCH (08:01)
[2019-12-06] MEDS: MUPIROCIN 2% OINT 22 GM TUBE TOP SCH ×2 (08:01→21:34)
[2019-12-06] MEDS: BUDESONIDE/FORMOTEROL 160-4.5 INHALER 6 GM INH SCH ×2 (08:01→21:29)
[2019-12-06] MEDS: APIXABAN 2.5 MG TABLET PO SCH ×2 (08:01→21:28)
[2019-12-06] MEDS: ASPIRIN EC 81 MG TABLET PO SCH (08:01)
[2019-12-06] MEDS: PANTOPRAZOLE 40 MG TABLET PO SCH (08:02)
[2019-12-06] MEDS: SPIRONOLACTONE 25 MG TABLET PO SCH (08:02)
[2019-12-06] MEDS: CHOLECALCIFEROL 1,000 UNIT TABLET PO SCH (08:02)
[2019-12-06] MEDS: [UNRECOGNIZED DRUG - OTHER] PO SCH (08:04)
[2019-12-06] MEDS ORDERED: POTASSIUM CHLORIDE 20 MEQ TABLET PO SCH (09:00)
[2019-12-06] MEDS: MAGNESIUM HYDROXIDE SUSP 30 ML UDCUP PO PRN (16:30)
[2019-12-06] MEDS: MONTELUKAST 10 MG TABLET PO SCH (21:28)
[2019-12-06] MEDS: [UNRECOGNIZED DRUG - OTHER] PO SCH (21:30)
[2019-12-07 05:47] LABS: Basophils % 0.3 % (0.0-0.8); Eosinophils # 0.1 10*3/uL (0.0-0.87); Eosinophils % 0.7 % (0.00-10.9); Hematocrit 43.8 VOL% (35.7-47.0); Hemoglobin 14.5 GM/DL (12.0-16.0); Immature Granulocytes % 0.5 %; Immature Granulocytes Absolute 0.05 #; Lymphocytes % 28.2 % (21.3-54.2); Mean Corpuscular HGB Conc 33.1 GM/DL (32-36); Mean Corpuscular Volume 99.8 FL (87-102); Mean Platelet Volume 10.2 FL (9.6-12.0); Monocytes % 9.9 % (1.7-12.7); Neutrophils % 60.4 % (38.7-73.9); Platelet Count 145 T/CUMM (130-400); Red Blood Count 4.39 MC/CUMM (3.8-5.5); Red Cell Distribution Width 15.2 % (9.3-17.3); White Blood Count 10.7 T/CUMM (4-12)
[2019-12-07 06:02] LABS: Calcium 8.6 MG/DL (8.5-10.1); Osmolality,Calculated 281.8 MOS/KG (273-304)
[2019-12-07] MEDS: CHOLECALCIFEROL 1,000 UNIT TABLET PO SCH (09:12)
[2019-12-07] MEDS: APIXABAN 2.5 MG TABLET PO SCH ×2 (09:12→20:04)
[2019-12-07] MEDS: TORSEMIDE 20 MG TABLET PO SCH (09:12)
[2019-12-07] MEDS: CETIRIZINE 10 MG TABLET PO SCH (09:15)
[2019-12-07] MEDS: PANTOPRAZOLE 40 MG TABLET PO SCH (09:15)
[2019-12-07] MEDS: ASPIRIN EC 81 MG TABLET PO SCH (09:16)
[2019-12-07] MEDS: SPIRONOLACTONE 25 MG TABLET PO SCH (09:16)
[2019-12-07] MEDS: CALCIUM CARBONATE CHEW 500 MG TABLET PO SCH (09:16)
[2019-12-07] MEDS: FLUTICASONE 50 MCG NASAL SPRAY 16 GM BOTTLE BOTH NARES SCH (09:17)
[2019-12-07] MEDS: MUPIROCIN 2% OINT 22 GM TUBE TOP SCH ×2 (09:17→20:05)
[2019-12-07] MEDS: [UNRECOGNIZED DRUG - OTHER] PO SCH (09:17)
[2019-12-07] MEDS: BUDESONIDE/FORMOTEROL 160-4.5 INHALER 6 GM INH SCH ×2 (09:17→20:05)
[2019-12-07] MEDS: MORPHINE 4 MG/1 ML VIAL IV PRN ×2 (20:01→23:43)
[2019-12-07] MEDS: MAGNESIUM HYDROXIDE SUSP 30 ML UDCUP PO PRN ×2 (20:01→20:04)
[2019-12-07] MEDS: MONTELUKAST 10 MG TABLET PO SCH (20:04)
[2019-12-07] MEDS: [UNRECOGNIZED DRUG - OTHER] PO SCH (20:05)
[2019-12-08 08:20] VITALS: BP 105/62
[2019-12-08] MEDS: APIXABAN 2.5 MG TABLET PO SCH (09:48)
[2019-12-08] MEDS: CHOLECALCIFEROL 1,000 UNIT TABLET PO SCH (09:48)
[2019-12-08] MEDS: SPIRONOLACTONE 25 MG TABLET PO SCH (09:48)
[2019-12-08] MEDS: TORSEMIDE 20 MG TABLET PO SCH (09:48)
[2019-12-08] MEDS: ASPIRIN EC 81 MG TABLET PO SCH (09:48)
[2019-12-08] MEDS: PANTOPRAZOLE 40 MG TABLET PO SCH (09:48)
[2019-12-08] MEDS: CALCIUM CARBONATE CHEW 500 MG TABLET PO SCH (09:48)
[2019-12-08] MEDS: CETIRIZINE 10 MG TABLET PO SCH (09:48)
[2019-12-08] MEDS: BUDESONIDE/FORMOTEROL 160-4.5 INHALER 6 GM INH SCH (09:50)
[2019-12-08] MEDS: MUPIROCIN 2% OINT 22 GM TUBE TOP SCH (09:51)
[2019-12-08] MEDS: FLUTICASONE 50 MCG NASAL SPRAY 16 GM BOTTLE BOTH NARES SCH (09:51)
[2019-12-08] MEDS: [UNRECOGNIZED DRUG - OTHER] PO SCH (09:53)
[2019-12-08] MEDS ORDERED: AMIODARONE 200 MG TABLET PO SCH (10:05)
[2019-12-08] MEDS: AMIODARONE 200 MG TABLET PO SCH ×2 (11:35→11:46)
== END 2019-12-08 12:51 | disposition home health service (06) | DRG 309 ==
LOC: N.TELES → N.ICU 12-05 14:38 → N.TELEN 12-06 11:00
PROVIDERS: ADMIT Internal Medicine Cardiovascular Disease; ATTEND Internal Medicine Cardiovascular Disease

== ENCOUNTER 2020-04-09 09:48 | Inpatient (IN) ==
[2020-04-09] MEDS ORDERED: FUROSEMIDE 100 MG/10 ML VIAL IV STA (10:25)
[2020-04-09 10:30] LABS: Basophils % 0.2 % (0.0-0.8); Eosinophils % 0.3 % (0.00-10.9); Hematocrit 46.8 VOL% (35.7-47.0); Hemoglobin 15.1 GM/DL (12.0-16.0); Immature Granulocytes % 0.4 %; Immature Granulocytes Absolute 0.04 #; Lymphocytes # 1.9 10*3/uL (1.4-4.0); Lymphocytes % 19.9 % (21.3-54.2); Mean Corpuscular HGB Conc 32.3 GM/DL (32-36); Mean Corpuscular Volume 98.1 FL (87-102); Mean Platelet Volume 10.3 FL (9.6-12.0); Monocytes % 9.9 % (1.7-12.7); Neutrophils % 69.3 % (38.7-73.9); Platelet Count 175 T/CUMM (130-400); Red Blood Count 4.77 MC/CUMM (3.8-5.5); Red Cell Distribution Width 14.9 % (9.3-17.3); White Blood Count 9.6 T/CUMM (4-12)
[2020-04-09 11:03] LABS: Bilirubin,Total 1.7 MG/DL (0.2-1.0); Calcium 8.4 MG/DL (8.5-10.1); Osmolality,Calculated 271.5 MOS/KG (273-304); Total Protein 5.9 G/DL (6.4-8.3)
[2020-04-09] MEDS ORDERED: MAGNESIUM SULF RIDER 2 GM in PREMIX 1 EACH IV PRN (11:47)
[2020-04-09] MEDS ORDERED: ZALEPLON 5 MG CAPSULE PO PRN (11:47)
[2020-04-09] MEDS ORDERED: MAGNESIUM SULF RIDER 4 GM in PREMIX 1 EACH IV PRN (11:47)
[2020-04-09] MEDS ORDERED: MORPHINE 4 MG/1 ML VIAL IV PRN (11:47)
[2020-04-09] MEDS ORDERED: ENOXAPARIN 40 MG/0.4 ML SYRINGE SUBCUT SCH (12:00)
[2020-04-09] MEDS ORDERED: FUROSEMIDE 40 MG/4 ML VIAL IV SCH (16:00)
[2020-04-09] MEDS: FUROSEMIDE 40 MG/4 ML VIAL IV SCH (16:48)
[2020-04-09] MEDS: MUPIROCIN 2% OINT 22 GM TUBE TOP SCH (21:59)
[2020-04-09] MEDS: APIXABAN 2.5 MG TABLET PO SCH (21:59)
[2020-04-09] MEDS: BUDESONIDE/FORMOTEROL 160-4.5 INHALER 6 GM INH SCH (21:59)
[2020-04-09] MEDS: MONTELUKAST 10 MG TABLET PO SCH (21:59)
[2020-04-10 06:40] LABS: Risk Ratio 4.89; VLDL CHOLESTEROL 15.4 MG/DL
[2020-04-10] MEDS ORDERED: FUROSEMIDE 40 MG/4 ML VIAL IV ONE (09:14)
[2020-04-10] MEDS: FLUTICASONE 50 MCG NASAL SPRAY 16 GM BOTTLE BOTH NARES SCH (09:33)
[2020-04-10] MEDS: CALCIUM CARBONATE CHEW 500 MG TABLET PO SCH (09:34)
[2020-04-10] MEDS: PANTOPRAZOLE 40 MG TABLET PO SCH (09:34)
[2020-04-10] MEDS: CETIRIZINE 10 MG TABLET PO SCH (09:34)
[2020-04-10] MEDS: MUPIROCIN 2% OINT 22 GM TUBE TOP SCH ×2 (09:34→20:53)
[2020-04-10] MEDS: BUDESONIDE/FORMOTEROL 160-4.5 INHALER 6 GM INH SCH ×2 (09:34→20:53)
[2020-04-10] MEDS: CHOLECALCIFEROL 1,000 UNIT TABLET PO SCH (09:34)
[2020-04-10] MEDS: APIXABAN 2.5 MG TABLET PO SCH ×2 (09:34→20:53)
[2020-04-10] MEDS: ASPIRIN EC 81 MG TABLET PO SCH (09:34)
[2020-04-10] MEDS: FUROSEMIDE 40 MG/4 ML VIAL IV SCH ×2 (09:39→16:40)
[2020-04-10 09:47] LABS: Calcium 8.5 MG/DL (8.5-10.1); Osmolality,Calculated 279.8 MOS/KG (273-304)
[2020-04-10 09:52] LABS: Basophils % 0.3 % (0.0-0.8); Eosinophils % 0.4 % (0.00-10.9); Hematocrit 45.8 VOL% (35.7-47.0); Hemoglobin 14.9 GM/DL (12.0-16.0); Immature Granulocytes % 0.4 %; Immature Granulocytes Absolute 0.04 #; Lymphocytes # 2.4 10*3/uL (1.4-4.0); Lymphocytes % 26.5 % (21.3-54.2); Mean Corpuscular HGB Conc 32.5 GM/DL (32-36); Mean Corpuscular Volume 97.9 FL (87-102); Mean Platelet Volume 10.8 FL (9.6-12.0); Monocytes % 10.9 % (1.7-12.7); Neutrophils % 61.5 % (38.7-73.9); Platelet Count 169 T/CUMM (130-400); Red Blood Count 4.68 MC/CUMM (3.8-5.5); Red Cell Distribution Width 15.1 % (9.3-17.3); White Blood Count 9.1 T/CUMM (4-12)
[2020-04-10] MEDS: METOPROLOL TARTRATE 25 MG TABLET PO SCH ×2 (12:39→20:53)
[2020-04-10] MEDS: MONTELUKAST 10 MG TABLET PO SCH (20:53)
[2020-04-11 03:48] LABS: Basophils % 0.4 % (0.0-0.8); Eosinophils % 0.4 % (0.00-10.9); Hemoglobin 14.4 GM/DL (12.0-16.0); Immature Granulocytes % 0.4 %; Immature Granulocytes Absolute 0.04 #; Lymphocytes # 2.5 10*3/uL (1.4-4.0); Lymphocytes % 24.7 % (21.3-54.2); Mean Corpuscular HGB Conc 32.7 GM/DL (32-36); Mean Corpuscular Volume 97.6 FL (87-102); Mean Platelet Volume 10.5 FL (9.6-12.0); Monocytes % 10.7 % (1.7-12.7); Neutrophils % 63.4 % (38.7-73.9); Platelet Count 176 T/CUMM (130-400); Red Blood Count 4.51 MC/CUMM (3.8-5.5); Red Cell Distribution Width 15.1 % (9.3-17.3); White Blood Count 9.9 T/CUMM (4-12)
[2020-04-11 04:01] LABS: Albumin 2.9 G/DL (3.4-5.0); Bilirubin,Total 1.4 MG/DL (0.2-1.0); Calcium 8.1 MG/DL (8.5-10.1); Osmolality,Calculated 270.5 MOS/KG (273-304)
[2020-04-11] MEDS: APIXABAN 2.5 MG TABLET PO SCH ×2 (08:39→21:21)
[2020-04-11] MEDS: POTASSIUM CHLORIDE 20 MEQ TABLET PO PRN (08:39)
[2020-04-11] MEDS: POLYETHYLENE GLYCOL POWDER 17 GM PACK PO PRN (08:40)
[2020-04-11] MEDS: CHOLECALCIFEROL 1,000 UNIT TABLET PO SCH (08:40)
[2020-04-11] MEDS: CETIRIZINE 10 MG TABLET PO SCH (08:40)
[2020-04-11] MEDS: METOPROLOL TARTRATE 25 MG TABLET PO SCH ×2 (08:40→21:21)
[2020-04-11] MEDS: PANTOPRAZOLE 40 MG TABLET PO SCH (08:40)
[2020-04-11] MEDS: FUROSEMIDE 40 MG/4 ML VIAL IV SCH ×2 (08:41→16:45)
[2020-04-11] MEDS: CALCIUM CARBONATE CHEW 500 MG TABLET PO SCH (08:41)
[2020-04-11] MEDS: MUPIROCIN 2% OINT 22 GM TUBE TOP SCH ×2 (09:18→21:21)
[2020-04-11] MEDS: FLUTICASONE 50 MCG NASAL SPRAY 16 GM BOTTLE BOTH NARES SCH (09:18)
[2020-04-11] MEDS: BUDESONIDE/FORMOTEROL 160-4.5 INHALER 6 GM INH SCH ×2 (09:18→21:21)
[2020-04-11] MEDS: ASPIRIN EC 81 MG TABLET PO SCH (09:19)
[2020-04-11] MEDS ORDERED: SPIRONOLACTONE 25 MG TABLET PO SCH (10:00)
[2020-04-11] MEDS ORDERED: metOLazone 5 MG TABLET PO SCH (13:00)
[2020-04-11] MEDS ORDERED: FUROSEMIDE 40 MG/4 ML VIAL IV ONE (13:30)
[2020-04-11] MEDS: MONTELUKAST 10 MG TABLET PO SCH (21:21)
[2020-04-12 06:53] LABS: Calcium 8.1 MG/DL (8.5-10.1); Osmolality,Calculated 268.5 MOS/KG (273-304)
[2020-04-12] MEDS ORDERED: POTASSIUM CHLORIDE 20 MEQ TABLET PO ONE (09:04)
[2020-04-12] MEDS: CALCIUM CARBONATE CHEW 500 MG TABLET PO SCH (10:08)
[2020-04-12] MEDS: SPIRONOLACTONE 25 MG TABLET PO SCH (10:08)
[2020-04-12] MEDS: PANTOPRAZOLE 40 MG TABLET PO SCH (10:08)
[2020-04-12] MEDS: CHOLECALCIFEROL 1,000 UNIT TABLET PO SCH (10:09)
[2020-04-12] MEDS: ASPIRIN EC 81 MG TABLET PO SCH (10:09)
[2020-04-12] MEDS: CETIRIZINE 10 MG TABLET PO SCH (10:09)
[2020-04-12] MEDS: APIXABAN 2.5 MG TABLET PO SCH ×2 (10:09→20:48)
[2020-04-12] MEDS: METOPROLOL SUCCINATE XL 25 MG TABLET PO SCH ×2 (10:10→20:49)
[2020-04-12] MEDS: MUPIROCIN 2% OINT 22 GM TUBE TOP SCH ×2 (10:12→20:55)
[2020-04-12] MEDS: FLUTICASONE 50 MCG NASAL SPRAY 16 GM BOTTLE BOTH NARES SCH (10:12)
[2020-04-12] MEDS: FUROSEMIDE 40 MG/4 ML VIAL IV SCH ×3 (10:13→16:35)
[2020-04-12] MEDS: BUDESONIDE/FORMOTEROL 160-4.5 INHALER 6 GM INH SCH ×2 (10:13→20:50)
[2020-04-12] MEDS: MONTELUKAST 10 MG TABLET PO SCH (20:48)
[2020-04-13 03:20] LABS: Calcium 8.5 MG/DL (8.5-10.1); Osmolality,Calculated 278.2 MOS/KG (273-304)
[2020-04-13] MEDS: METOPROLOL SUCCINATE XL 25 MG TABLET PO SCH ×2 (08:58→20:12)
[2020-04-13] MEDS: CHOLECALCIFEROL 1,000 UNIT TABLET PO SCH (08:58)
[2020-04-13] MEDS: APIXABAN 2.5 MG TABLET PO SCH ×2 (08:58→20:12)
[2020-04-13] MEDS: ASPIRIN EC 81 MG TABLET PO SCH (08:58)
[2020-04-13] MEDS: FUROSEMIDE 40 MG/4 ML VIAL IV SCH ×2 (08:58→16:35)
[2020-04-13] MEDS: SPIRONOLACTONE 25 MG TABLET PO SCH (08:58)
[2020-04-13] MEDS: CALCIUM CARBONATE CHEW 500 MG TABLET PO SCH (08:58)
[2020-04-13] MEDS: CETIRIZINE 10 MG TABLET PO SCH (08:58)
[2020-04-13] MEDS: FLUTICASONE 50 MCG NASAL SPRAY 16 GM BOTTLE BOTH NARES SCH (08:59)
[2020-04-13] MEDS: MUPIROCIN 2% OINT 22 GM TUBE TOP SCH ×2 (08:59→20:11)
[2020-04-13] MEDS: BUDESONIDE/FORMOTEROL 160-4.5 INHALER 6 GM INH SCH ×2 (08:59→20:11)
[2020-04-13] MEDS: PANTOPRAZOLE 40 MG TABLET PO SCH (08:59)
[2020-04-13] MEDS: MONTELUKAST 10 MG TABLET PO SCH (20:13)
[2020-04-14 05:57] LABS: Bilirubin,Total 1.4 MG/DL (0.2-1.0); Calcium 8.8 MG/DL (8.5-10.1); Osmolality,Calculated 274.2 MOS/KG (273-304); Total Protein 6.2 G/DL (6.4-8.3)
[2020-04-14] MEDS ORDERED: metOLazone 5 MG TABLET PO ONE (08:00)
[2020-04-14] MEDS: CHOLECALCIFEROL 1,000 UNIT TABLET PO SCH (09:04)
[2020-04-14] MEDS: APIXABAN 2.5 MG TABLET PO SCH ×2 (09:04→21:59)
[2020-04-14] MEDS: CETIRIZINE 10 MG TABLET PO SCH (09:04)
[2020-04-14] MEDS: PANTOPRAZOLE 40 MG TABLET PO SCH (09:04)
[2020-04-14] MEDS: SPIRONOLACTONE 25 MG TABLET PO SCH (09:04)
[2020-04-14] MEDS: POTASSIUM CHLORIDE 20 MEQ TABLET PO PRN ×4 (09:04→21:58)
[2020-04-14] MEDS: METOPROLOL SUCCINATE XL 25 MG TABLET PO SCH ×2 (09:04→21:58)
[2020-04-14] MEDS: CALCIUM CARBONATE CHEW 500 MG TABLET PO SCH (09:05)
[2020-04-14] MEDS: FLUTICASONE 50 MCG NASAL SPRAY 16 GM BOTTLE BOTH NARES SCH (09:05)
[2020-04-14] MEDS: BUDESONIDE/FORMOTEROL 160-4.5 INHALER 6 GM INH SCH ×2 (09:05→21:56)
[2020-04-14] MEDS: MUPIROCIN 2% OINT 22 GM TUBE TOP SCH ×2 (09:06→21:56)
[2020-04-14] MEDS: ASPIRIN EC 81 MG TABLET PO SCH (09:08)
[2020-04-14] MEDS: FUROSEMIDE 40 MG/4 ML VIAL IV SCH ×2 (09:48→16:14)
[2020-04-14] MEDS ORDERED: ZALEPLON 5 MG CAPSULE PO PRN (20:00)
[2020-04-14] MEDS: POLYETHYLENE GLYCOL POWDER 17 GM PACK PO PRN (21:57)
[2020-04-14] MEDS: MONTELUKAST 10 MG TABLET PO SCH (21:58)
[2020-04-15] MEDS: ASPIRIN EC 81 MG TABLET PO SCH (08:37)
[2020-04-15] MEDS: METOPROLOL SUCCINATE XL 25 MG TABLET PO SCH ×2 (08:38→21:21)
[2020-04-15] MEDS: CHOLECALCIFEROL 1,000 UNIT TABLET PO SCH (08:38)
[2020-04-15] MEDS: CETIRIZINE 10 MG TABLET PO SCH (08:38)
[2020-04-15] MEDS: APIXABAN 2.5 MG TABLET PO SCH ×2 (08:39→21:21)
[2020-04-15] MEDS: CALCIUM CARBONATE CHEW 500 MG TABLET PO SCH (08:39)
[2020-04-15] MEDS: metOLazone 5 MG TABLET PO SCH ×2 (08:39→09:49)
[2020-04-15] MEDS: PANTOPRAZOLE 40 MG TABLET PO SCH (08:39)
[2020-04-15] MEDS: SPIRONOLACTONE 25 MG TABLET PO SCH (08:39)
[2020-04-15] MEDS: FLUTICASONE 50 MCG NASAL SPRAY 16 GM BOTTLE BOTH NARES SCH (08:40)
[2020-04-15] MEDS: BUDESONIDE/FORMOTEROL 160-4.5 INHALER 6 GM INH SCH ×2 (08:40→21:23)
[2020-04-15] MEDS: MUPIROCIN 2% OINT 22 GM TUBE TOP SCH ×2 (08:40→21:23)
[2020-04-15] MEDS: FUROSEMIDE 40 MG/4 ML VIAL IV SCH ×2 (08:50→15:20)
[2020-04-15] MEDS: POLYETHYLENE GLYCOL POWDER 17 GM PACK PO PRN (21:20)
[2020-04-15] MEDS: MONTELUKAST 10 MG TABLET PO SCH (21:20)
[2020-04-16] MEDS: CHOLECALCIFEROL 1,000 UNIT TABLET PO SCH (10:01)
[2020-04-16] MEDS: APIXABAN 2.5 MG TABLET PO SCH (10:01)
[2020-04-16] MEDS: PANTOPRAZOLE 40 MG TABLET PO SCH (10:01)
[2020-04-16] MEDS: METOPROLOL SUCCINATE XL 25 MG TABLET PO SCH (10:02)
[2020-04-16] MEDS: SPIRONOLACTONE 25 MG TABLET PO SCH (10:02)
[2020-04-16] MEDS: CALCIUM CARBONATE CHEW 500 MG TABLET PO SCH (10:02)
[2020-04-16] MEDS: CETIRIZINE 10 MG TABLET PO SCH (10:02)
[2020-04-16] MEDS: metOLazone 5 MG TABLET PO SCH (10:03)
[2020-04-16] MEDS: BUDESONIDE/FORMOTEROL 160-4.5 INHALER 6 GM INH SCH (10:08)
[2020-04-16] MEDS: FLUTICASONE 50 MCG NASAL SPRAY 16 GM BOTTLE BOTH NARES SCH (10:08)
[2020-04-16] MEDS: MUPIROCIN 2% OINT 22 GM TUBE TOP SCH (10:09)
[2020-04-16] MEDS: FUROSEMIDE 40 MG/4 ML VIAL IV SCH (10:11)
[2020-04-16] MEDS: ASPIRIN EC 81 MG TABLET PO SCH (10:11)
[2020-04-16] MEDS ORDERED: metOLazone 5 MG TABLET PO SCH (10:18)
[2020-04-16 12:08] VITALS: BP 122/92
[2020-04-17] MEDS ORDERED: TORSEMIDE 20 MG TABLET PO SCH (09:00)
== END 2020-04-16 12:50 | disposition swing bed (61) | DRG 291 ==
LOC: N.ED 09:48 → N.EDINP 11:47 → N.TELES 16:09
PROVIDERS: ADMIT Family Medicine; ATTEND Family Medicine

== ENCOUNTER 2020-05-17 14:34 | Inpatient (IN) ==
[2020-05-17 15:20] LABS: Apearance,Urine CLEAR (Clear); Bacteria,Urine Occasional /HPF (Few); Bilirubin,Urine Negative (Negative); Blood, Urine Negative (Negative); Glucose,Urine (UA) Negative (Negative); Hyaline Casts,Urine 68 /LPF (0-3); Ketones,Urine Negative (Negative); Nitrite,Urine Negative (Negative); Protein,Urine Negative; Squamous Epithelial Cell,Urine Occasional /HPF (0-10); Urine Color Yellow (Yellow); Urine Specific Gravity 1.012 (1.001-1.035); Urine Urobilinogen < 2.0 EU/DL (0.2-1.0)
[2020-05-17 16:35] LABS: Basophils % 0.1 % (0.0-0.8); Eosinophils % 0.1 % (0.00-10.9); Hematocrit 46.2 VOL% (35.7-47.0); Hemoglobin 15.7 GM/DL (12.0-16.0); Immature Granulocytes % 0.7 %; Immature Granulocytes Absolute 0.08 #; Lymphocytes # 2.3 10*3/uL (1.4-4.0); Lymphocytes % 20.1 % (21.3-54.2); Mean Platelet Volume 10.8 FL (9.6-12.0); NRBC # 0.08 10*3/uL; Platelet Count 141 T/CUMM (130-400); Red Blood Count 5.02 MC/CUMM (3.8-5.5); Red Cell Distribution Width 15.9 % (9.3-17.3); White Blood Count 11.3 T/CUMM (4-12)
[2020-05-17 16:36] LABS: Osmolality,Calculated 288.5 MOS/KG (273-304)
[2020-05-17 16:38] LABS: Calcium 5.2 MG/DL (8.5-10.1)
[2020-05-17 17:49] LABS: ABG Base Excess -6.8 MMOL/L (-2.5-2.5); ABG Oxygen Saturation 97.8 % (95-100); ABG PCO2 34.9 MM HG (35-48); ABG PH 7.328 (7.35-7.45); ABG TCO2 15.5 MMOL/L (23-27)
[2020-05-17] MEDS ORDERED: MAGNESIUM SULF RIDER 4 GM in PREMIX 1 EACH IV PRN (18:23)
[2020-05-17] MEDS ORDERED: MAGNESIUM SULF RIDER 2 GM in PREMIX 1 EACH IV PRN (18:23)
[2020-05-17] MEDS ORDERED: CALCIUM GLUCONATE 2,000 MG in SODIUM CHLORIDE 0.9% 100 ML IV ONE (18:24)
[2020-05-18] MEDS ORDERED: LORazepam 2 MG/1 ML VIAL IV ONE (00:31)
[2020-05-18 07:34] LABS: Basophils % 0.2 % (0.0-0.8); Eosinophils % 0.1 % (0.00-10.9); Hematocrit 48.5 VOL% (35.7-47.0); Hemoglobin 16.2 GM/DL (12.0-16.0); Immature Granulocytes % 0.6 %; Immature Granulocytes Absolute 0.09 #; Lymphocytes # 2.6 10*3/uL (1.4-4.0); Lymphocytes % 18.2 % (21.3-54.2); Mean Corpuscular HGB Conc 33.4 GM/DL (32-36); Mean Corpuscular Volume 93.3 FL (87-102); Mean Platelet Volume 10.1 FL (9.6-12.0); NRBC # 0.06 10*3/uL; Neutrophils % 69.9 % (38.7-73.9); Platelet Count 188 T/CUMM (130-400); Red Cell Distribution Width 15.9 % (9.3-17.3)
[2020-05-18 07:51] LABS: Calcium 9.7 MG/DL (8.5-10.1); Osmolality,Calculated 273.5 MOS/KG (273-304)
[2020-05-18 09:28] LABS: Calcium 9.6 MG/DL (8.5-10.1); Osmolality,Calculated 274.4 MOS/KG (273-304)
[2020-05-18] MEDS ORDERED: SODIUM CHLORIDE 0.9% 500 ML IV ONE (10:12)
[2020-05-18] MEDS ORDERED: SODIUM POLYSTYRENE SULFATE 15 GM/60 ML BOTTLE PO ONE (10:30)
[2020-05-18] MEDS: SODIUM CHLORIDE 0.9% 1,000 ML IV SCH (11:46)
[2020-05-18] MEDS: cefTRIAXone 1,000 MG in SYRINGE 1 EACH IV SCH (18:06)
[2020-05-18 18:26] LABS: Albumin 2.9 G/DL (3.4-5.0); Bilirubin,Direct 1.25 MG/DL (0.0-0.20); Bilirubin,Indirect 0.7 MG/DL (0.0-1.0); Bilirubin,Total 1.9 MG/DL (0.2-1.0); Osmolality,Calculated 282.9 MOS/KG (273-304); Total Protein 6.2 G/DL (6.4-8.3)
[2020-05-18 18:46] LABS: Apearance,Urine Slightly Hazy (Clear); Bilirubin,Urine Negative (Negative); Blood, Urine Large mg/dL (Negative); Glucose,Urine (UA) Negative (Negative); Hyaline Casts,Urine 12 /LPF (0-3); Ketones,Urine Negative (Negative); Mucus,Urine Occasional /LPF (Occasional); Nitrite,Urine Negative (Negative); Protein,Urine Negative; RBC,Urine 173 /HPF (0-4); Squamous Epithelial Cell,Urine Occasional /HPF (0-10); Urine Color Yellow (Yellow); Urine Specific Gravity 1.015 (1.001-1.035); Urine Urobilinogen < 2.0 EU/DL (0.2-1.0); WBC,Urine 18 /HPF (0-6)
[2020-05-18] MEDS: BUDESONIDE/FORMOTEROL 160-4.5 INHALER 6 GM INH SCH (21:28)
[2020-05-18] MEDS: APIXABAN 2.5 MG TABLET PO SCH (21:33)
[2020-05-18] MEDS: METOPROLOL SUCCINATE XL 25 MG TABLET PO SCH (21:34)
[2020-05-19 02:10] LABS: Basophils % 0.2 % (0.0-0.8); Eosinophils % 0.2 % (0.00-10.9); Hematocrit 44.2 VOL% (35.7-47.0); Hemoglobin 14.8 GM/DL (12.0-16.0); Immature Granulocytes % 0.7 %; Immature Granulocytes Absolute 0.08 #; Lymphocytes % 16.6 % (21.3-54.2); Mean Corpuscular HGB Conc 33.5 GM/DL (32-36); Mean Corpuscular Volume 93.4 FL (87-102); Mean Platelet Volume 9.9 FL (9.6-12.0); NRBC # 0.07 10*3/uL; Neutrophils % 66.3 % (38.7-73.9); Platelet Count 185 T/CUMM (130-400); Red Blood Count 4.73 MC/CUMM (3.8-5.5); Red Cell Distribution Width 15.9 % (9.3-17.3)
[2020-05-19 02:30] LABS: Lymphocytes 24 % (20-55); Nucleated Red Blood Cells 1 (0-5); Platelet Estimate Normal; Segmented Neutrophils 62 % (50-85); Total Cells Counted 100
[2020-05-19 02:38] LABS: Calcium 9.2 MG/DL (8.5-10.1); Osmolality,Calculated 279.9 MOS/KG (273-304)
[2020-05-19] MEDS ORDERED: SPIRONOLACTONE 25 MG TABLET PO SCH (09:00)
[2020-05-19] MEDS: CALCIUM CARBONATE CHEW 500 MG TABLET PO SCH (10:16)
[2020-05-19] MEDS: METOPROLOL SUCCINATE XL 25 MG TABLET PO SCH ×2 (10:16→20:20)
[2020-05-19] MEDS: ASPIRIN EC 81 MG TABLET PO SCH (10:17)
[2020-05-19] MEDS: DILTIAZEM CD 120 MG CAPSULE PO SCH (10:17)
[2020-05-19] MEDS: BUDESONIDE/FORMOTEROL 160-4.5 INHALER 6 GM INH SCH ×2 (10:17→20:28)
[2020-05-19] MEDS: APIXABAN 2.5 MG TABLET PO SCH ×2 (10:17→20:20)
[2020-05-19] MEDS: SODIUM CHLORIDE 0.9% 1,000 ML IV SCH ×2 (10:18→20:26)
[2020-05-19] MEDS: cefTRIAXone 1,000 MG in SYRINGE 1 EACH IV SCH (17:40)
[2020-05-20 03:00] LABS: Basophils % 0.2 % (0.0-0.8); Eosinophils % 0.2 % (0.00-10.9); Hematocrit 45.7 VOL% (35.7-47.0); Hemoglobin 15.2 GM/DL (12.0-16.0); Immature Granulocytes % 0.6 %; Immature Granulocytes Absolute 0.07 #; Lymphocytes % 17.7 % (21.3-54.2); Mean Corpuscular HGB Conc 33.3 GM/DL (32-36); Mean Corpuscular Volume 92.9 FL (87-102); Mean Platelet Volume 10.3 FL (9.6-12.0); NRBC # 0.05 10*3/uL; Neutrophils % 69.3 % (38.7-73.9); Platelet Count 157 T/CUMM (130-400); Red Blood Count 4.92 MC/CUMM (3.8-5.5); Red Cell Distribution Width 15.8 % (9.3-17.3); White Blood Count 11.1 T/CUMM (4-12)
[2020-05-20 03:12] LABS: Calcium 8.6 MG/DL (8.5-10.1); Osmolality,Calculated 271.9 MOS/KG (273-304)
[2020-05-20] MEDS ORDERED: cefTRIAXone 2,000 MG in SYRINGE 1 EACH IV SCH (06:00)
[2020-05-20] MEDS: METOPROLOL SUCCINATE XL 25 MG TABLET PO SCH ×2 (10:47→22:25)
[2020-05-20] MEDS: ASPIRIN EC 81 MG TABLET PO SCH (10:47)
[2020-05-20] MEDS: APIXABAN 2.5 MG TABLET PO SCH (10:47)
[2020-05-20] MEDS: DILTIAZEM CD 120 MG CAPSULE PO SCH (10:47)
[2020-05-20] MEDS: CALCIUM CARBONATE CHEW 500 MG TABLET PO SCH (10:47)
[2020-05-20] MEDS: BUDESONIDE/FORMOTEROL 160-4.5 INHALER 6 GM INH SCH ×2 (10:48→22:25)
[2020-05-20] MEDS ORDERED: LEVOFLOXACIN 500 MG TABLET PO SCH (13:30)
[2020-05-20 15:33] LABS: INR 1.3; PT Patient Result 13.9 SECS (9.8-11.9); Partial Thromboplastin Time 34.3 SECS (23.9-33.8)
[2020-05-20 15:36] LABS: Bilirubin,Direct 0.67 MG/DL (0.0-0.20); Bilirubin,Indirect 0.4 MG/DL (0.0-1.0); Bilirubin,Total 1.1 MG/DL (0.2-1.0); Calcium 8.9 MG/DL (8.5-10.1); Osmolality,Calculated 272.9 MOS/KG (273-304); Total Protein 6.7 G/DL (6.4-8.3)
[2020-05-20] MEDS: SODIUM CHLORIDE 0.9% 1,000 ML IV SCH (16:02)
[2020-05-20] MEDS: cefTRIAXone 2,000 MG in SYRINGE 1 EACH IV SCH (18:46)
[2020-05-20] MEDS: FLUTICASONE 50 MCG NASAL SPRAY 16 GM BOTTLE BOTH NARES SCH (22:24)
[2020-05-21 06:00] LABS: Basophils % 0.3 % (0.0-0.8); Eosinophils % 0.2 % (0.00-10.9); Hematocrit 45.4 VOL% (35.7-47.0); Hemoglobin 15.2 GM/DL (12.0-16.0); Immature Granulocytes % 0.8 %; Lymphocytes # 1.9 10*3/uL (1.4-4.0); Lymphocytes % 14.8 % (21.3-54.2); Mean Corpuscular HGB Conc 33.5 GM/DL (32-36); Mean Corpuscular Volume 91.9 FL (87-102); Mean Platelet Volume 10.5 FL (9.6-12.0); Monocytes % 14.1 % (1.7-12.7); NRBC # 0.14 10*3/uL; Neutrophils % 69.8 % (38.7-73.9); Platelet Count 186 T/CUMM (130-400); Red Blood Count 4.94 MC/CUMM (3.8-5.5); Red Cell Distribution Width 16.3 % (9.3-17.3); White Blood Count 13.1 T/CUMM (4-12)
[2020-05-21] MEDS: cefTRIAXone 2,000 MG in SYRINGE 1 EACH IV SCH ×2 (06:06→18:27)
[2020-05-21 06:19] LABS: Calcium 8.9 MG/DL (8.5-10.1); Osmolality,Calculated 269.1 MOS/KG (273-304)
[2020-05-21] MEDS: DILTIAZEM CD 120 MG CAPSULE PO SCH (08:46)
[2020-05-21] MEDS: ASPIRIN EC 81 MG TABLET PO SCH (08:46)
[2020-05-21] MEDS: FLUTICASONE 50 MCG NASAL SPRAY 16 GM BOTTLE BOTH NARES SCH ×2 (08:46→21:26)
[2020-05-21] MEDS: CALCIUM CARBONATE CHEW 500 MG TABLET PO SCH (08:46)
[2020-05-21] MEDS: METOPROLOL SUCCINATE XL 25 MG TABLET PO SCH ×2 (08:46→21:27)
[2020-05-21] MEDS: BUDESONIDE/FORMOTEROL 160-4.5 INHALER 6 GM INH SCH ×2 (08:47→21:27)
[2020-05-21] MEDS: LEVOFLOXACIN INJ 500 MG in PREMIX 1 EACH IV SCH (17:28)
[2020-05-21] MEDS: SODIUM CHLORIDE 0.9% 1,000 ML IV SCH ×2 (17:30→18:27)
[2020-05-22 05:22] LABS: Basophils % 0.1 % (0.0-0.8); Eosinophils % 0.2 % (0.00-10.9); Hematocrit 42.3 VOL% (35.7-47.0); Hemoglobin 14.2 GM/DL (12.0-16.0); Immature Granulocytes % 0.9 %; Immature Granulocytes Absolute 0.11 #; Lymphocytes # 1.8 10*3/uL (1.4-4.0); Lymphocytes % 14.2 % (21.3-54.2); Mean Corpuscular HGB Conc 33.6 GM/DL (32-36); Mean Corpuscular Volume 92.6 FL (87-102); Monocytes % 12.6 % (1.7-12.7); NRBC # 0.13 10*3/uL; Platelet Count 171 T/CUMM (130-400); Red Blood Count 4.57 MC/CUMM (3.8-5.5); Red Cell Distribution Width 16.4 % (9.3-17.3); White Blood Count 12.7 T/CUMM (4-12)
[2020-05-22] MEDS: cefTRIAXone 2,000 MG in SYRINGE 1 EACH IV SCH ×2 (05:49→17:10)
[2020-05-22 05:59] LABS: Albumin 2.8 G/DL (3.4-5.0); Bilirubin,Total 1.7 MG/DL (0.2-1.0); Calcium 8.8 MG/DL (8.5-10.1); Osmolality,Calculated 267.1 MOS/KG (273-304); Total Protein 6.1 G/DL (6.4-8.3)
[2020-05-22] MEDS: CALCIUM CARBONATE CHEW 500 MG TABLET PO SCH (08:45)
[2020-05-22] MEDS: ASPIRIN EC 81 MG TABLET PO SCH (08:45)
[2020-05-22] MEDS: METOPROLOL SUCCINATE XL 25 MG TABLET PO SCH ×2 (08:45→21:05)
[2020-05-22] MEDS: DILTIAZEM CD 120 MG CAPSULE PO SCH (08:45)
[2020-05-22] MEDS: FLUTICASONE 50 MCG NASAL SPRAY 16 GM BOTTLE BOTH NARES SCH ×2 (08:47→21:05)
[2020-05-22] MEDS: BUDESONIDE/FORMOTEROL 160-4.5 INHALER 6 GM INH SCH ×2 (08:47→21:05)
[2020-05-22] MEDS: SODIUM CHLORIDE 0.9% 1,000 ML IV SCH (14:19)
[2020-05-22 15:35] LABS: ABG Base Excess -7.1 MMOL/L (-2.5-2.5); ABG HCO3 18.8 MMOL/L (20-26); ABG Oxygen Saturation 98.6 % (95-100); ABG PCO2 22.9 MM HG (35-48); ABG TCO2 12.9 MMOL/L (23-27)
[2020-05-22] MEDS: LEVOFLOXACIN INJ 500 MG in PREMIX 1 EACH IV SCH (16:17)
[2020-05-23] MEDS ORDERED: ACETAMINOPHEN 325 MG TABLET PO PRN (00:17)
[2020-05-23] MEDS: traMADol 50 MG TABLET PO PRN (00:28)
[2020-05-23] MEDS: cefTRIAXone 2,000 MG in SYRINGE 1 EACH IV SCH ×2 (05:37→17:17)
[2020-05-23 07:15] LABS: Basophils % 0.3 % (0.0-0.8); Hematocrit 48.5 VOL% (35.7-47.0); Hemoglobin 15.4 GM/DL (12.0-16.0); Immature Granulocytes % 1.1 %; Immature Granulocytes Absolute 0.16 #; Lymphocytes # 1.5 10*3/uL (1.4-4.0); Lymphocytes % 10.3 % (21.3-54.2); Mean Corpuscular HGB Conc 31.8 GM/DL (32-36); Mean Corpuscular Volume 96.2 FL (87-102); Mean Platelet Volume 10.2 FL (9.6-12.0); Monocytes % 9.5 % (1.7-12.7); NRBC # 0.31 10*3/uL; Neutrophils % 78.8 % (38.7-73.9); Platelet Count 165 T/CUMM (130-400); Red Blood Count 5.04 MC/CUMM (3.8-5.5); White Blood Count 14.5 T/CUMM (4-12)
[2020-05-23 08:18] LABS: Albumin 3.4 G/DL (3.4-5.0); Bilirubin,Total 3.2 MG/DL (0.2-1.0); Calcium 9.2 MG/DL (8.5-10.1); Osmolality,Calculated 267.2 MOS/KG (273-304); Total Protein 7.2 G/DL (6.4-8.3)
[2020-05-23] MEDS: CALCIUM CARBONATE CHEW 500 MG TABLET PO SCH (09:35)
[2020-05-23] MEDS: DILTIAZEM CD 120 MG CAPSULE PO SCH (09:35)
[2020-05-23] MEDS: METOPROLOL SUCCINATE XL 25 MG TABLET PO SCH ×2 (09:36→21:00)
[2020-05-23] MEDS: BUDESONIDE/FORMOTEROL 160-4.5 INHALER 6 GM INH SCH ×2 (09:36→21:00)
[2020-05-23] MEDS: FLUTICASONE 50 MCG NASAL SPRAY 16 GM BOTTLE BOTH NARES SCH ×2 (09:36→21:00)
[2020-05-23] MEDS: ASPIRIN EC 81 MG TABLET PO SCH (09:36)
[2020-05-23] MEDS: LEVOFLOXACIN INJ 500 MG in PREMIX 1 EACH IV SCH (14:47)
[2020-05-23] MEDS: SODIUM CHLORIDE 0.9% 1,000 ML IV SCH (14:47)
[2020-05-24] MEDS: traMADol 50 MG TABLET PO PRN (02:59)
[2020-05-24] MEDS: cefTRIAXone 2,000 MG in SYRINGE 1 EACH IV SCH ×2 (05:28→18:02)
[2020-05-24] MEDS: SODIUM CHLORIDE 0.9% 1,000 ML IV SCH ×2 (05:34→17:14)
[2020-05-24 05:39] LABS: Basophils % 0.2 % (0.0-0.8); Eosinophils % 0.1 % (0.00-10.9); Hematocrit 44.3 VOL% (35.7-47.0); Hemoglobin 14.8 GM/DL (12.0-16.0); Immature Granulocytes % 1.1 %; Immature Granulocytes Absolute 0.16 #; Lymphocytes # 1.6 10*3/uL (1.4-4.0); Lymphocytes % 10.9 % (21.3-54.2); Mean Corpuscular HGB Conc 33.4 GM/DL (32-36); Mean Corpuscular Volume 92.1 FL (87-102); Mean Platelet Volume 10.6 FL (9.6-12.0); Monocytes % 11.6 % (1.7-12.7); NRBC # 0.22 10*3/uL; Neutrophils % 76.1 % (38.7-73.9); Platelet Count 154 T/CUMM (130-400); Red Blood Count 4.81 MC/CUMM (3.8-5.5); Red Cell Distribution Width 16.9 % (9.3-17.3); White Blood Count 14.7 T/CUMM (4-12)
[2020-05-24 07:55] LABS: Albumin 3.1 G/DL (3.4-5.0); Bilirubin,Total 1.7 MG/DL (0.2-1.0); Calcium 8.7 MG/DL (8.5-10.1); Osmolality,Calculated 275.9 MOS/KG (273-304); Total Protein 6.7 G/DL (6.4-8.3)
[2020-05-24] MEDS: CALCIUM CARBONATE CHEW 500 MG TABLET PO SCH (10:09)
[2020-05-24] MEDS: DILTIAZEM CD 120 MG CAPSULE PO SCH (10:09)
[2020-05-24] MEDS: ASPIRIN EC 81 MG TABLET PO SCH (10:09)
[2020-05-24] MEDS: METOPROLOL SUCCINATE XL 25 MG TABLET PO SCH ×2 (10:09→21:50)
[2020-05-24] MEDS: BUDESONIDE/FORMOTEROL 160-4.5 INHALER 6 GM INH SCH ×2 (10:09→21:49)
[2020-05-24] MEDS: FLUTICASONE 50 MCG NASAL SPRAY 16 GM BOTTLE BOTH NARES SCH ×2 (10:09→21:48)
[2020-05-24 11:29] LABS: Lymphocytes,CSF 48 %; Monocytes,CSF 35 %; Neutrophils,CSF 17 %; White Blood Cell,CSF 23 C/CUMM
[2020-05-24 11:30] LABS: Appearance,CSF Clear; Red Blood Cell,CSF 140 C/CUMM
[2020-05-24 11:36] LABS: Glucose,CSF 64 MG/DL (40-70)
[2020-05-24] MEDS: LEVOFLOXACIN INJ 500 MG in PREMIX 1 EACH IV SCH (16:36)
[2020-05-24] MEDS ORDERED: ONDANSETRON 4 MG/2 ML VIAL IV PRN (16:45)
[2020-05-24] MEDS: SODIUM CHLORIDE 0.9% IV SCH (21:49)
[2020-05-24] MEDS: APIXABAN 2.5 MG TABLET PO SCH (21:49)
[2020-05-24] MEDS: ACYCLOVIR IV SCH (21:49)
[2020-05-25] MEDS: SODIUM CHLORIDE 0.9% IV SCH (05:16)
[2020-05-25] MEDS: ACYCLOVIR IV SCH (05:16)
[2020-05-25] MEDS: cefTRIAXone 2,000 MG in SYRINGE 1 EACH IV SCH (06:33)
[2020-05-25 08:13] LABS: Basophils % 0.1 % (0.0-0.8); Eosinophils % 0.1 % (0.00-10.9); Immature Granulocytes % 1.2 %; Immature Granulocytes Absolute 0.17 #; Lymphocytes # 1.6 10*3/uL (1.4-4.0); Lymphocytes % 10.6 % (21.3-54.2); Mean Corpuscular HGB Conc 32.6 GM/DL (32-36); Mean Corpuscular Volume 94.3 FL (87-102); Mean Platelet Volume 9.5 FL (9.6-12.0); Monocytes % 14.5 % (1.7-12.7); NRBC # 0.13 10*3/uL; Neutrophils % 73.5 % (38.7-73.9); Platelet Count 126 T/CUMM (130-400); Red Blood Count 4.56 MC/CUMM (3.8-5.5); Red Cell Distribution Width 16.8 % (9.3-17.3); White Blood Count 14.7 T/CUMM (4-12)
[2020-05-25 08:24] LABS: Albumin 2.9 G/DL (3.4-5.0); Bilirubin,Total 1.5 MG/DL (0.2-1.0); Calcium 8.7 MG/DL (8.5-10.1); Osmolality,Calculated 277.9 MOS/KG (273-304); Total Protein 6.3 G/DL (6.4-8.3)
[2020-05-25] MEDS ORDERED: ACYCLOVIR INJ 500 MG in SODIUM CHLORIDE 0.9% 100 ML IV SCH (09:00)
[2020-05-25] MEDS: DILTIAZEM CD 120 MG CAPSULE PO SCH (09:01)
[2020-05-25] MEDS: APIXABAN 2.5 MG TABLET PO SCH ×2 (09:01→20:51)
[2020-05-25] MEDS: CALCIUM CARBONATE CHEW 500 MG TABLET PO SCH (09:01)
[2020-05-25] MEDS: SODIUM CHLORIDE 0.9% 1,000 ML IV SCH (09:02)
[2020-05-25] MEDS: METOPROLOL SUCCINATE XL 25 MG TABLET PO SCH ×2 (09:02→20:52)
[2020-05-25] MEDS: ASPIRIN EC 81 MG TABLET PO SCH (09:02)
[2020-05-25] MEDS: traMADol 50 MG TABLET PO PRN (09:03)
[2020-05-25] MEDS: BUDESONIDE/FORMOTEROL 160-4.5 INHALER 6 GM INH SCH ×2 (09:07→20:52)
[2020-05-25] MEDS: FLUTICASONE 50 MCG NASAL SPRAY 16 GM BOTTLE BOTH NARES SCH ×2 (09:07→20:52)
[2020-05-25] MEDS: LEVOFLOXACIN INJ 500 MG in PREMIX 1 EACH IV SCH (15:47)
[2020-05-25] MEDS: ALPRAZolam 0.25 MG TABLET PO PRN ×2 (16:46→22:28)
[2020-05-25] MEDS: cefTRIAXone 1,000 MG in SYRINGE 1 EACH IV SCH (20:52)
[2020-05-26 06:18] LABS: Basophils % 0.2 % (0.0-0.8); Eosinophils % 0.2 % (0.00-10.9); Hematocrit 40.4 VOL% (35.7-47.0); Hemoglobin 13.4 GM/DL (12.0-16.0); Immature Granulocytes % 0.8 %; Lymphocytes # 1.4 10*3/uL (1.4-4.0); Lymphocytes % 10.5 % (21.3-54.2); Mean Corpuscular HGB Conc 33.2 GM/DL (32-36); Mean Corpuscular Volume 92.4 FL (87-102); Mean Platelet Volume 9.8 FL (9.6-12.0); Monocytes % 18.1 % (1.7-12.7); NRBC # 0.09 10*3/uL; Neutrophils % 70.2 % (38.7-73.9); Platelet Count 126 T/CUMM (130-400); Red Blood Count 4.37 MC/CUMM (3.8-5.5); Red Cell Distribution Width 16.7 % (9.3-17.3); White Blood Count 13.3 T/CUMM (4-12)
[2020-05-26 06:43] LABS: Eosinophils 1 % (0-10); Lymphocytes 8 % (20-55); Nucleated Red Blood Cells 1 (0-5); Platelet Estimate Normal; Segmented Neutrophils 79 % (50-85); Total Cells Counted 100
[2020-05-26 06:44] LABS: Burr Cells Slight; Hypochromasia 1+; Ovalocytes Slight
[2020-05-26 06:49] LABS: Bilirubin,Total 1.4 MG/DL (0.2-1.0); Calcium 8.5 MG/DL (8.5-10.1); Osmolality,Calculated 271.2 MOS/KG (273-304); Total Protein 6.2 G/DL (6.4-8.3)
[2020-05-26] MEDS: CALCIUM CARBONATE CHEW 500 MG TABLET PO SCH (10:07)
[2020-05-26] MEDS: DILTIAZEM CD 120 MG CAPSULE PO SCH (10:07)
[2020-05-26] MEDS: APIXABAN 2.5 MG TABLET PO SCH ×2 (10:07→21:30)
[2020-05-26] MEDS: ASPIRIN EC 81 MG TABLET PO SCH (10:07)
[2020-05-26] MEDS: ALPRAZolam 0.25 MG TABLET PO PRN ×3 (10:07→22:26)
[2020-05-26] MEDS: METOPROLOL SUCCINATE XL 25 MG TABLET PO SCH (10:08)
[2020-05-26] MEDS: cefTRIAXone 1,000 MG in SYRINGE 1 EACH IV SCH ×2 (10:10→21:30)
[2020-05-26] MEDS: FLUTICASONE 50 MCG NASAL SPRAY 16 GM BOTTLE BOTH NARES SCH ×2 (10:10→21:30)
[2020-05-26] MEDS: BUDESONIDE/FORMOTEROL 160-4.5 INHALER 6 GM INH SCH ×2 (10:10→21:30)
[2020-05-26 12:38] LABS: West Nile Virus Ab, IgG, CSF Negative (Negative); West Nile Virus Ab, IgM, CSF Negative (Negative)
[2020-05-26] MEDS: LEVOFLOXACIN INJ 500 MG in PREMIX 1 EACH IV SCH (15:12)
[2020-05-26] MEDS: SODIUM CHLORIDE 0.9% 1,000 ML IV SCH (15:16)
[2020-05-26] MEDS: traMADol 50 MG TABLET PO PRN (15:20)
[2020-05-27] MEDS: METOPROLOL SUCCINATE XL 25 MG TABLET PO SCH ×3 (00:46→21:09)
[2020-05-27 05:47] LABS: Basophils % 0.2 % (0.0-0.8); Eosinophils # 0.1 10*3/uL (0.0-0.87); Eosinophils % 0.5 % (0.00-10.9); Hemoglobin 13.6 GM/DL (12.0-16.0); Immature Granulocytes Absolute 0.11 #; Lymphocytes # 1.1 10*3/uL (1.4-4.0); Lymphocytes % 10.2 % (21.3-54.2); Mean Corpuscular HGB Conc 33.2 GM/DL (32-36); Mean Corpuscular Volume 90.9 FL (87-102); Mean Platelet Volume 9.8 FL (9.6-12.0); Monocytes % 14.7 % (1.7-12.7); NRBC # 0.11 10*3/uL; Neutrophils % 73.4 % (38.7-73.9); Platelet Count 125 T/CUMM (130-400); Red Blood Count 4.51 MC/CUMM (3.8-5.5); Red Cell Distribution Width 17.2 % (9.3-17.3); White Blood Count 11.1 T/CUMM (4-12)
[2020-05-27 06:13] LABS: Albumin 2.9 G/DL (3.4-5.0); Bilirubin,Total 1.3 MG/DL (0.2-1.0); Calcium 8.4 MG/DL (8.5-10.1); Osmolality,Calculated 261.8 MOS/KG (273-304); Total Protein 6.2 G/DL (6.4-8.3)
[2020-05-27] MEDS: cefTRIAXone 1,000 MG in SYRINGE 1 EACH IV SCH ×3 (08:54→20:56)
[2020-05-27] MEDS: DILTIAZEM CD 120 MG CAPSULE PO SCH (08:54)
[2020-05-27] MEDS: ASPIRIN EC 81 MG TABLET PO SCH (08:55)
[2020-05-27] MEDS: APIXABAN 2.5 MG TABLET PO SCH ×2 (08:55→21:04)
[2020-05-27] MEDS: CALCIUM CARBONATE CHEW 500 MG TABLET PO SCH (08:55)
[2020-05-27] MEDS: FLUTICASONE 50 MCG NASAL SPRAY 16 GM BOTTLE BOTH NARES SCH ×2 (09:14→21:06)
[2020-05-27] MEDS: BUDESONIDE/FORMOTEROL 160-4.5 INHALER 6 GM INH SCH ×2 (09:14→21:06)
[2020-05-27] MEDS: SODIUM CHLORIDE 0.9% 1,000 ML IV SCH (11:11)
[2020-05-27] MEDS: ALPRAZolam 0.25 MG TABLET PO PRN (11:12)
[2020-05-27] MEDS: TORSEMIDE 20 MG TABLET PO SCH (17:39)
[2020-05-27] MEDS: LEVOFLOXACIN INJ 500 MG in PREMIX 1 EACH IV SCH (17:40)
[2020-05-27] MEDS ORDERED: FUROSEMIDE 40 MG/4 ML VIAL IV ONE (20:24)
[2020-05-27] MEDS: ALBUTEROL/IPRATROPIUM 3 ML NEB RESP TX PRN (20:46)
[2020-05-28] MEDS: SODIUM CHLORIDE 0.9% 1,000 ML IV SCH (02:30)
[2020-05-28] MEDS: traMADol 50 MG TABLET PO PRN (04:20)
[2020-05-28] MEDS: ASPIRIN EC 81 MG TABLET PO SCH (09:19)
[2020-05-28] MEDS: DILTIAZEM CD 120 MG CAPSULE PO SCH (09:19)
[2020-05-28] MEDS: APIXABAN 2.5 MG TABLET PO SCH ×2 (09:19→20:32)
[2020-05-28] MEDS: TORSEMIDE 20 MG TABLET PO SCH (09:19)
[2020-05-28] MEDS: CALCIUM CARBONATE CHEW 500 MG TABLET PO SCH (09:20)
[2020-05-28] MEDS: METOPROLOL SUCCINATE XL 25 MG TABLET PO SCH ×2 (09:20→20:33)
[2020-05-28] MEDS: BUDESONIDE/FORMOTEROL 160-4.5 INHALER 6 GM INH SCH ×2 (09:24→20:32)
[2020-05-28] MEDS: FLUTICASONE 50 MCG NASAL SPRAY 16 GM BOTTLE BOTH NARES SCH ×2 (09:24→20:32)
[2020-05-28 10:31] LABS: Albumin 2.8 G/DL (3.4-5.0); Bilirubin,Total 2.5 MG/DL (0.2-1.0); Calcium 8.6 MG/DL (8.5-10.1); Osmolality,Calculated 265.1 MOS/KG (273-304); Total Protein 5.8 G/DL (6.4-8.3)
[2020-05-28] MEDS: cefTRIAXone 1,000 MG in SYRINGE 1 EACH IV SCH ×2 (10:52→22:03)
[2020-05-28 12:43] LABS: VDRL Spinal Fluid Negative (Negative)
[2020-05-28] MEDS: LEVOFLOXACIN INJ 500 MG in PREMIX 1 EACH IV SCH (15:39)
[2020-05-29] MEDS: SODIUM CHLORIDE 0.9% 1,000 ML IV SCH (04:27)
[2020-05-29 06:43] LABS: Albumin 2.8 G/DL (3.4-5.0); Bilirubin,Total 2.2 MG/DL (0.2-1.0); Calcium 8.7 MG/DL (8.5-10.1); Osmolality,Calculated 268.7 MOS/KG (273-304)
[2020-05-29] MEDS: DILTIAZEM CD 120 MG CAPSULE PO SCH (09:00)
[2020-05-29] MEDS: CALCIUM CARBONATE CHEW 500 MG TABLET PO SCH (09:00)
[2020-05-29] MEDS: TORSEMIDE 20 MG TABLET PO SCH (09:00)
[2020-05-29] MEDS: ASPIRIN EC 81 MG TABLET PO SCH (09:00)
[2020-05-29] MEDS: METOPROLOL SUCCINATE XL 25 MG TABLET PO SCH ×2 (09:00→20:12)
[2020-05-29] MEDS: APIXABAN 2.5 MG TABLET PO SCH ×2 (09:00→20:11)
[2020-05-29] MEDS: cefTRIAXone 1,000 MG in SYRINGE 1 EACH IV SCH (09:36)
[2020-05-29] MEDS: FLUTICASONE 50 MCG NASAL SPRAY 16 GM BOTTLE BOTH NARES SCH ×2 (09:39→20:12)
[2020-05-29] MEDS: BUDESONIDE/FORMOTEROL 160-4.5 INHALER 6 GM INH SCH ×2 (11:30→20:12)
[2020-05-29] MEDS ORDERED: FUROSEMIDE 20 MG/2 ML VIAL IV SCH (12:07)
[2020-05-29] MEDS ORDERED: hydrALAZINE 20 MG/1 ML VIAL IV PRN (13:31)
[2020-05-29] MEDS ORDERED: POTASSIUM CHLORIDE INJ 20 MEQ in SODIUM CHLORIDE 0.9% 1,000 ML IV SCH (13:48)
[2020-05-29] MEDS ORDERED: SODIUM CHLOR 0.9% KCL 20 MEQ 20 MEQ/1,000 ML BAG IV SCH (14:00)
[2020-05-29] MEDS: SODIUM CHLOR 0.9% KCL 20 MEQ 20 MEQ/1,000 ML BAG IV SCH (14:56)
[2020-05-29] MEDS: LEVOFLOXACIN INJ 500 MG in PREMIX 1 EACH IV SCH (14:59)
[2020-05-29] MEDS ORDERED: DEXTROSE 10% 1,000 ML IV PRN (17:00)
[2020-05-29] MEDS: MULTIVITAMIN INJ 10 ML in AMINO ACIDS/DEXT/LYTES 4.25-5% 2,000 ML IV SCH (17:33)
[2020-05-29] MEDS: FAT EMULSION 20% 250 ML IV SCH (17:40)
[2020-05-30] MEDS ORDERED: MORPHINE 4 MG/1 ML VIAL IV ONE (01:00)
[2020-05-30 05:29] LABS: Basophils % 0.1 % (0.0-0.8); Eosinophils % 0.3 % (0.00-10.9); Hematocrit 39.4 VOL% (35.7-47.0); Hemoglobin 13.3 GM/DL (12.0-16.0); Immature Granulocytes % 0.8 %; Immature Granulocytes Absolute 0.11 #; Lymphocytes # 1.5 10*3/uL (1.4-4.0); Lymphocytes % 11.4 % (21.3-54.2); Mean Corpuscular HGB Conc 33.8 GM/DL (32-36); Mean Corpuscular Volume 90.8 FL (87-102); Mean Platelet Volume 9.9 FL (9.6-12.0); Monocytes % 11.2 % (1.7-12.7); NRBC # 0.03 10*3/uL; Neutrophils % 76.2 % (38.7-73.9); Platelet Count 117 T/CUMM (130-400); Red Blood Count 4.34 MC/CUMM (3.8-5.5); Red Cell Distribution Width 17.5 % (9.3-17.3); White Blood Count 13.2 T/CUMM (4-12)
[2020-05-30] MEDS: SODIUM CHLOR 0.9% KCL 20 MEQ 20 MEQ/1,000 ML BAG IV SCH ×2 (05:34→18:54)
[2020-05-30 06:15] LABS: Albumin 2.4 G/DL (3.4-5.0); Bilirubin,Total 2.9 MG/DL (0.2-1.0); Calcium 8.2 MG/DL (8.5-10.1); Osmolality,Calculated 274.4 MOS/KG (273-304); Total Protein 5.6 G/DL (6.4-8.3)
[2020-05-30] MEDS: BUDESONIDE/FORMOTEROL 160-4.5 INHALER 6 GM INH SCH ×2 (09:32→20:57)
[2020-05-30] MEDS: FLUTICASONE 50 MCG NASAL SPRAY 16 GM BOTTLE BOTH NARES SCH ×2 (09:32→20:57)
[2020-05-30] MEDS: DILTIAZEM CD 120 MG CAPSULE PO SCH (09:36)
[2020-05-30] MEDS: ASPIRIN EC 81 MG TABLET PO SCH (09:36)
[2020-05-30] MEDS: TORSEMIDE 20 MG TABLET PO SCH (09:37)
[2020-05-30] MEDS: CALCIUM CARBONATE CHEW 500 MG TABLET PO SCH (09:37)
[2020-05-30] MEDS: APIXABAN 2.5 MG TABLET PO SCH (09:37)
[2020-05-30] MEDS: METOPROLOL SUCCINATE XL 25 MG TABLET PO SCH ×2 (09:37→20:57)
[2020-05-30] MEDS: ENOXAPARIN 40 MG/0.4 ML SYRINGE SUBCUT SCH (13:50)
[2020-05-30] MEDS: FAT EMULSION 20% 250 ML IV SCH (14:40)
[2020-05-30] MEDS: MORPHINE 4 MG/1 ML VIAL IV PRN (15:13)
[2020-05-30] MEDS: LEVOFLOXACIN INJ 500 MG in PREMIX 1 EACH IV SCH (18:55)
[2020-05-30] MEDS: MULTIVITAMIN INJ 10 ML in AMINO ACIDS/DEXT/LYTES 4.25-5% 2,000 ML IV SCH (19:01)
[2020-05-31] MEDS: MORPHINE 4 MG/1 ML VIAL IV PRN ×4 (00:03→23:46)
[2020-05-31] MEDS: ENOXAPARIN 40 MG/0.4 ML SYRINGE SUBCUT SCH ×2 (00:05→12:21)
[2020-05-31 06:19] LABS: Basophils % 0.2 % (0.0-0.8); Eosinophils % 0.4 % (0.00-10.9); Hematocrit 40.5 VOL% (35.7-47.0); Immature Granulocytes % 0.9 %; Immature Granulocytes Absolute 0.09 #; Lymphocytes # 1.2 10*3/uL (1.4-4.0); Lymphocytes % 11.4 % (21.3-54.2); Mean Corpuscular HGB Conc 32.1 GM/DL (32-36); Mean Corpuscular Volume 92.9 FL (87-102); Mean Platelet Volume 10.6 FL (9.6-12.0); Monocytes % 13.3 % (1.7-12.7); Neutrophils % 73.8 % (38.7-73.9); Platelet Count 105 T/CUMM (130-400); Red Blood Count 4.36 MC/CUMM (3.8-5.5); Red Cell Distribution Width 18.3 % (9.3-17.3); White Blood Count 10.5 T/CUMM (4-12)
[2020-05-31 06:42] LABS: Calcium 8.2 MG/DL (8.5-10.1); Osmolality,Calculated 264.8 MOS/KG (273-304)
[2020-05-31 07:03] LABS: Calcium 8.3 MG/DL (8.5-10.1); Total Protein 5.5 G/DL (6.4-8.3)
[2020-05-31 07:04] LABS: Albumin 2.1 G/DL (3.4-5.0); Osmolality,Calculated 264.8 MOS/KG (273-304)
[2020-05-31] MEDS: DILTIAZEM CD 120 MG CAPSULE PO SCH (08:25)
[2020-05-31] MEDS: ASPIRIN EC 81 MG TABLET PO SCH (09:45)
[2020-05-31] MEDS: METOPROLOL SUCCINATE XL 25 MG TABLET PO SCH ×2 (09:46→20:42)
[2020-05-31] MEDS: TORSEMIDE 20 MG TABLET PO SCH (09:46)
[2020-05-31] MEDS: BUDESONIDE/FORMOTEROL 160-4.5 INHALER 6 GM INH SCH ×2 (09:46→20:41)
[2020-05-31] MEDS: FLUTICASONE 50 MCG NASAL SPRAY 16 GM BOTTLE BOTH NARES SCH ×2 (09:46→20:41)
[2020-05-31] MEDS: CALCIUM CARBONATE CHEW 500 MG TABLET PO SCH (09:47)
[2020-05-31] MEDS: SODIUM CHLOR 0.9% KCL 20 MEQ 20 MEQ/1,000 ML BAG IV SCH (12:20)
[2020-05-31] MEDS: LEVOFLOXACIN INJ 500 MG in PREMIX 1 EACH IV SCH (13:40)
[2020-05-31] MEDS ORDERED: DICLOFENAC 1% GEL 100 GM TUBE TOP PRN (15:59)
[2020-05-31] MEDS: MULTIVITAMIN INJ 10 ML in AMINO ACIDS/DEXT/LYTES 4.25-5% 2,000 ML IV SCH (17:19)
[2020-05-31] MEDS: FAT EMULSION 20% 250 ML IV SCH (17:24)
[2020-05-31] MEDS: ALPRAZolam 0.25 MG TABLET PO PRN (19:28)
[2020-05-31] MEDS: SPIRONOLACTONE 25 MG TABLET PO SCH (20:42)
[2020-05-31] MEDS: APIXABAN 2.5 MG TABLET PO SCH (20:42)
[2020-06-01] MEDS: ALPRAZolam 0.25 MG TABLET PO PRN (02:40)
[2020-06-01] MEDS: SODIUM CHLOR 0.9% KCL 20 MEQ 20 MEQ/1,000 ML BAG IV SCH ×2 (05:00→22:56)
[2020-06-01] MEDS: DILTIAZEM CD 120 MG CAPSULE PO SCH (09:27)
[2020-06-01] MEDS: METOPROLOL SUCCINATE XL 25 MG TABLET PO SCH ×2 (09:27→21:51)
[2020-06-01] MEDS: ASPIRIN EC 81 MG TABLET PO SCH (09:27)
[2020-06-01] MEDS: CALCIUM CARBONATE CHEW 500 MG TABLET PO SCH (09:27)
[2020-06-01] MEDS: CHOLECALCIFEROL 1,000 UNIT TABLET PO SCH (09:27)
[2020-06-01] MEDS: FLUTICASONE 50 MCG NASAL SPRAY 16 GM BOTTLE BOTH NARES SCH ×2 (09:28→21:50)
[2020-06-01] MEDS: APIXABAN 2.5 MG TABLET PO SCH ×2 (09:28→21:51)
[2020-06-01] MEDS: TORSEMIDE 20 MG TABLET PO SCH (09:28)
[2020-06-01] MEDS: BUDESONIDE/FORMOTEROL 160-4.5 INHALER 6 GM INH SCH ×2 (09:28→21:50)
[2020-06-01] MEDS: CETIRIZINE 10 MG TABLET PO SCH (09:29)
[2020-06-01] MEDS: FAT EMULSION 20% 250 ML IV SCH (13:25)
[2020-06-01] MEDS: LEVOFLOXACIN INJ 500 MG in PREMIX 1 EACH IV SCH (13:29)
[2020-06-01] MEDS: MORPHINE 4 MG/1 ML VIAL IV PRN ×2 (15:03→22:56)
[2020-06-01] MEDS ORDERED: FUROSEMIDE 20 MG/2 ML VIAL IV ONE (15:36)
[2020-06-01] MEDS ORDERED: FUROSEMIDE 20 MG/2 ML VIAL IV PRN (15:39)
[2020-06-01] MEDS: ALBUTEROL/IPRATROPIUM 3 ML NEB RESP TX PRN (16:05)
[2020-06-01] MEDS: SPIRONOLACTONE 25 MG TABLET PO SCH (21:51)
[2020-06-02] MEDS ORDERED: FUROSEMIDE 20 MG/2 ML VIAL IV PRN (00:01)
[2020-06-02] MEDS: MORPHINE 4 MG/1 ML VIAL IV PRN ×3 (05:17→21:19)
[2020-06-02 07:05] LABS: Basophils % 0.3 % (0.0-0.8); Eosinophils % 0.3 % (0.00-10.9); Hematocrit 43.6 VOL% (35.7-47.0); Hemoglobin 14.2 GM/DL (12.0-16.0); Immature Granulocytes % 1.3 %; Immature Granulocytes Absolute 0.15 #; Lymphocytes # 1.5 10*3/uL (1.4-4.0); Lymphocytes % 12.7 % (21.3-54.2); Mean Corpuscular HGB Conc 32.6 GM/DL (32-36); Mean Corpuscular Volume 93.2 FL (87-102); Mean Platelet Volume 10.3 FL (9.6-12.0); Monocytes % 12.5 % (1.7-12.7); Neutrophils % 72.9 % (38.7-73.9); Platelet Count 117 T/CUMM (130-400); Red Blood Count 4.68 MC/CUMM (3.8-5.5); Red Cell Distribution Width 18.9 % (9.3-17.3); White Blood Count 11.8 T/CUMM (4-12)
[2020-06-02 07:21] LABS: Hypochromasia 1+; Platelet Estimate Decreased
[2020-06-02 07:45] LABS: Albumin 2.6 G/DL (3.4-5.0); Calcium 8.6 MG/DL (8.5-10.1); Osmolality,Calculated 272.4 MOS/KG (273-304); Total Protein 6.2 G/DL (6.4-8.3)
[2020-06-02] MEDS: ASPIRIN EC 81 MG TABLET PO SCH (11:21)
[2020-06-02] MEDS: DILTIAZEM CD 120 MG CAPSULE PO SCH (11:21)
[2020-06-02] MEDS: TORSEMIDE 20 MG TABLET PO SCH (11:21)
[2020-06-02] MEDS: FLUTICASONE 50 MCG NASAL SPRAY 16 GM BOTTLE BOTH NARES SCH ×2 (11:22→21:20)
[2020-06-02] MEDS: CHOLECALCIFEROL 1,000 UNIT TABLET PO SCH (11:22)
[2020-06-02] MEDS: BUDESONIDE/FORMOTEROL 160-4.5 INHALER 6 GM INH SCH ×2 (11:22→21:20)
[2020-06-02] MEDS: CETIRIZINE 10 MG TABLET PO SCH (11:22)
[2020-06-02] MEDS: APIXABAN 2.5 MG TABLET PO SCH ×2 (11:22→21:11)
[2020-06-02] MEDS: METOPROLOL SUCCINATE XL 25 MG TABLET PO SCH ×2 (11:22→21:11)
[2020-06-02] MEDS: CALCIUM CARBONATE CHEW 500 MG TABLET PO SCH (11:22)
[2020-06-02] MEDS: ALBUTEROL/IPRATROPIUM 3 ML NEB RESP TX PRN (11:30)
[2020-06-02] MEDS: SODIUM CHLOR 0.9% KCL 20 MEQ 20 MEQ/1,000 ML BAG IV SCH (14:59)
[2020-06-02] MEDS: LEVOFLOXACIN INJ 500 MG in PREMIX 1 EACH IV SCH (15:33)
[2020-06-02] MEDS: SPIRONOLACTONE 25 MG TABLET PO SCH (21:11)
[2020-06-03] MEDS ORDERED: NITROGLYCERIN SL 0.4 MG TABLET SL ONE (02:23)
[2020-06-03] MEDS ORDERED: traMADol 50 MG TABLET PO PRN (02:24)
[2020-06-03 03:11] LABS: Basophils # 0.1 10*3/uL (0.0-0.2); Basophils % 0.4 % (0.0-0.8); Eosinophils # 0.1 10*3/uL (0.0-0.87); Eosinophils % 0.4 % (0.00-10.9); Hematocrit 39.1 VOL% (35.7-47.0); Hemoglobin 12.8 GM/DL (12.0-16.0); Immature Granulocytes % 1.4 %; Immature Granulocytes Absolute 0.16 #; Lymphocytes # 1.7 10*3/uL (1.4-4.0); Lymphocytes % 15.5 % (21.3-54.2); Mean Corpuscular HGB Conc 32.7 GM/DL (32-36); Mean Corpuscular Volume 93.5 FL (87-102); Mean Platelet Volume 10.5 FL (9.6-12.0); Neutrophils % 68.3 % (38.7-73.9); Platelet Count 121 T/CUMM (130-400); Red Blood Count 4.18 MC/CUMM (3.8-5.5); Red Cell Distribution Width 18.9 % (9.3-17.3); White Blood Count 11.2 T/CUMM (4-12)
[2020-06-03 03:25] LABS: Calcium 8.2 MG/DL (8.5-10.1); Osmolality,Calculated 284.7 MOS/KG (273-304)
[2020-06-03 03:40] LABS: Troponin I 0.203 NG/ML (0.00-0.045)
[2020-06-03 03:44] LABS: Albumin 2.6 G/DL (3.4-5.0); Bilirubin,Total 2.2 MG/DL (0.2-1.0); Calcium 8.4 MG/DL (8.5-10.1); Osmolality,Calculated 281.8 MOS/KG (273-304); Total Protein 5.9 G/DL (6.4-8.3)
[2020-06-03 08:44] LABS: Troponin I 0.184 NG/ML (0.00-0.045)
[2020-06-03] MEDS ORDERED: BUMETANIDE 1 MG/4 ML VIAL IV ONE (09:21)
[2020-06-03] MEDS: ASPIRIN EC 81 MG TABLET PO SCH (09:27)
[2020-06-03] MEDS: DILTIAZEM CD 120 MG CAPSULE PO SCH (09:27)
[2020-06-03] MEDS: METOPROLOL SUCCINATE XL 25 MG TABLET PO SCH ×2 (09:28→22:07)
[2020-06-03] MEDS: FLUTICASONE 50 MCG NASAL SPRAY 16 GM BOTTLE BOTH NARES SCH ×2 (09:28→21:33)
[2020-06-03] MEDS: BUDESONIDE/FORMOTEROL 160-4.5 INHALER 6 GM INH SCH ×2 (09:28→21:32)
[2020-06-03] MEDS: CHOLECALCIFEROL 1,000 UNIT TABLET PO SCH (09:28)
[2020-06-03] MEDS: APIXABAN 2.5 MG TABLET PO SCH ×2 (09:28→21:32)
[2020-06-03] MEDS: TORSEMIDE 20 MG TABLET PO SCH (09:28)
[2020-06-03] MEDS: CETIRIZINE 10 MG TABLET PO SCH (09:28)
[2020-06-03] MEDS: CALCIUM CARBONATE CHEW 500 MG TABLET PO SCH (09:28)
[2020-06-03] MEDS: SODIUM CHLOR 0.9% KCL 20 MEQ 20 MEQ/1,000 ML BAG IV SCH (10:42)
[2020-06-03] MEDS ORDERED: LORazepam 2 MG/1 ML VIAL IV ONE (14:00)
[2020-06-03 15:07] LABS: Troponin I 0.214 NG/ML (0.00-0.045)
[2020-06-03] MEDS: SPIRONOLACTONE 25 MG TABLET PO SCH (21:32)
[2020-06-03] MEDS: MORPHINE 4 MG/1 ML VIAL IV PRN (22:02)
[2020-06-03] MEDS: LORazepam 2 MG/1 ML VIAL IV PRN (23:01)
[2020-06-04] MEDS: ALBUTEROL/IPRATROPIUM 3 ML NEB RESP TX PRN ×2 (07:37→12:05)
[2020-06-04] MEDS ORDERED: SERTRALINE 25 MG TABLET PO SCH (09:00)
[2020-06-04] MEDS: DILTIAZEM CD 120 MG CAPSULE PO SCH (10:13)
[2020-06-04] MEDS: ASPIRIN EC 81 MG TABLET PO SCH (10:13)
[2020-06-04] MEDS: FLUTICASONE 50 MCG NASAL SPRAY 16 GM BOTTLE BOTH NARES SCH (10:14)
[2020-06-04] MEDS: METOPROLOL SUCCINATE XL 25 MG TABLET PO SCH (10:14)
[2020-06-04] MEDS: CALCIUM CARBONATE CHEW 500 MG TABLET PO SCH (10:14)
[2020-06-04] MEDS: APIXABAN 2.5 MG TABLET PO SCH (10:14)
[2020-06-04] MEDS: CHOLECALCIFEROL 1,000 UNIT TABLET PO SCH (10:14)
[2020-06-04] MEDS: TORSEMIDE 20 MG TABLET PO SCH (10:14)
[2020-06-04] MEDS: BUDESONIDE/FORMOTEROL 160-4.5 INHALER 6 GM INH SCH (10:14)
[2020-06-04] MEDS: CETIRIZINE 10 MG TABLET PO SCH (10:15)
[2020-06-04] MEDS: LORazepam 2 MG/1 ML VIAL IV PRN (11:51)
[2020-06-04] MEDS: MORPHINE 4 MG/1 ML VIAL IV PRN (16:00)
[2020-06-04 16:06] VITALS: BP 115/55
== END 2020-06-04 19:48 | disposition hospice, home (50) | DRG 682 ==
LOC: EDUNIT# → N.ED 14:34 → N.EDINP 14:34 → N.3E 19:25
PROVIDERS: ADMIT Family Medicine; ATTEND Family Medicine

== ENCOUNTER 2020-06-09 08:31 | Observation (INO) ==
[2020-06-09 09:46] LABS: Basophils % 0.2 % (0.0-0.8); Eosinophils % 0.1 % (0.00-10.9); Hemoglobin 14.8 GM/DL (12.0-16.0); Immature Granulocytes % 0.8 %; Lymphocytes # 1.3 10*3/uL (1.4-4.0); Lymphocytes % 10.4 % (21.3-54.2); Mean Corpuscular HGB Conc 32.2 GM/DL (32-36); Mean Corpuscular Volume 95.4 FL (87-102); Mean Platelet Volume 10.3 FL (9.6-12.0); Monocytes % 8.9 % (1.7-12.7); NRBC # 0.02 10*3/uL; Neutrophils % 79.6 % (38.7-73.9); Platelet Count 229 T/CUMM (130-400); Red Blood Count 4.82 MC/CUMM (3.8-5.5); Red Cell Distribution Width 21.1 % (9.3-17.3); White Blood Count 12.1 T/CUMM (4-12)
[2020-06-09 09:53] LABS: INR 1.2
[2020-06-09 10:05] LABS: Albumin 2.8 G/DL (3.4-5.0); Bilirubin,Total 2.1 MG/DL (0.2-1.0); Calcium 8.9 MG/DL (8.5-10.1); Osmolality,Calculated 291.8 MOS/KG (273-304); Total Protein 6.5 G/DL (6.4-8.3)
[2020-06-09] MEDS ORDERED: ONDANSETRON 4 MG/2 ML VIAL IV PRN (10:47)
[2020-06-09] MEDS ORDERED: ACETAMINOPHEN 325 MG TABLET PO PRN (10:47)
[2020-06-09] MEDS: SODIUM CHLORIDE 0.9% 1,000 ML IV SCH ×2 (12:57→19:00)
[2020-06-09] MEDS ORDERED: DICLOFENAC 1% GEL 100 GM TUBE TOP PRN (17:13)
[2020-06-09] MEDS: oxyCODONE/ACETAMINOPHEN 5-325 MG TABLET PO PRN (20:20)
[2020-06-09] MEDS: METOPROLOL SUCCINATE XL 25 MG TABLET PO SCH (20:20)
[2020-06-09] MEDS: BUDESONIDE/FORMOTEROL 160-4.5 INHALER 6 GM INH SCH (20:26)
[2020-06-09] MEDS: DOCUSATE SODIUM 100 MG/10 ML UDCUP PO SCH (20:30)
[2020-06-09] MEDS: MUPIROCIN 2% OINT 22 GM TUBE TOP SCH (21:36)
[2020-06-09] MEDS: LIDOCAINE 2% TOP JELLY 5 ML TUBE TOP SCH ×2 (21:37)
[2020-06-09] MEDS: LORazepam 2 MG/1 ML VIAL IV PRN (23:53)
[2020-06-10] MEDS: LIDOCAINE 2% TOP JELLY 5 ML TUBE TOP SCH ×4 (01:45→13:05)
[2020-06-10] MEDS: SODIUM CHLORIDE 0.9% 1,000 ML IV SCH ×3 (03:00→20:32)
[2020-06-10 06:20] LABS: Basophils % 0.1 % (0.0-0.8); Hematocrit 45.7 VOL% (35.7-47.0); Hemoglobin 14.6 GM/DL (12.0-16.0); Immature Granulocytes Absolute 0.12 #; Lymphocytes # 1.2 10*3/uL (1.4-4.0); Lymphocytes % 9.8 % (21.3-54.2); Mean Corpuscular HGB Conc 31.9 GM/DL (32-36); Mean Corpuscular Volume 95.2 FL (87-102); Mean Platelet Volume 11.1 FL (9.6-12.0); Monocytes % 10.9 % (1.7-12.7); NRBC # 0.03 10*3/uL; Neutrophils % 78.2 % (38.7-73.9); Platelet Count 255 T/CUMM (130-400); Red Cell Distribution Width 21.2 % (9.3-17.3); White Blood Count 12.6 T/CUMM (4-12)
[2020-06-10 06:43] LABS: Albumin 2.7 G/DL (3.4-5.0); Bilirubin,Total 2.6 MG/DL (0.2-1.0); Calcium 8.8 MG/DL (8.5-10.1); Total Protein 6.3 G/DL (6.4-8.3)
[2020-06-10] MEDS ORDERED: CARBAMIDE PEROXIDE BOTH EARS SCH (09:00)
[2020-06-10] MEDS: FLUTICASONE 50 MCG NASAL SPRAY 16 GM BOTTLE BOTH NARES SCH (09:52)
[2020-06-10] MEDS: MUPIROCIN 2% OINT 22 GM TUBE TOP SCH ×2 (09:53→20:31)
[2020-06-10] MEDS: CALCIUM CARBONATE CHEW 500 MG TABLET PO SCH (09:54)
[2020-06-10] MEDS: DILTIAZEM CD 120 MG CAPSULE PO SCH (09:54)
[2020-06-10] MEDS: PANTOPRAZOLE 40 MG TABLET PO SCH (09:54)
[2020-06-10] MEDS: TORSEMIDE 20 MG TABLET PO SCH (09:54)
[2020-06-10] MEDS: DOCUSATE SODIUM 100 MG/10 ML UDCUP PO SCH ×3 (09:54→20:45)
[2020-06-10] MEDS: SERTRALINE 25 MG TABLET PO SCH (09:55)
[2020-06-10] MEDS: BUDESONIDE/FORMOTEROL 160-4.5 INHALER 6 GM INH SCH ×2 (09:55→20:31)
[2020-06-10] MEDS: METOPROLOL SUCCINATE XL 25 MG TABLET PO SCH ×3 (09:55→20:47)
[2020-06-10] MEDS: oxyCODONE/ACETAMINOPHEN 5-325 MG TABLET PO PRN ×2 (10:07→17:05)
[2020-06-10] MEDS: LORazepam 2 MG/1 ML VIAL IV PRN (13:40)
[2020-06-11] MEDS: LORazepam 2 MG/1 ML VIAL IV PRN (01:01)
[2020-06-11] MEDS: SODIUM CHLORIDE 0.9% 1,000 ML IV SCH (04:16)
[2020-06-11] MEDS: DILTIAZEM CD 120 MG CAPSULE PO SCH ×2 (08:42→10:48)
[2020-06-11] MEDS: DOCUSATE SODIUM 100 MG/10 ML UDCUP PO SCH ×2 (08:43→10:47)
[2020-06-11] MEDS: FLUTICASONE 50 MCG NASAL SPRAY 16 GM BOTTLE BOTH NARES SCH ×2 (08:43→10:49)
[2020-06-11] MEDS: CALCIUM CARBONATE CHEW 500 MG TABLET PO SCH ×2 (08:43→10:49)
[2020-06-11] MEDS: TORSEMIDE 20 MG TABLET PO SCH ×2 (08:43→10:49)
[2020-06-11] MEDS: POLYETHYLENE GLYCOL POWDER 17 GM PACK PO SCH ×2 (08:43→10:49)
[2020-06-11] MEDS: PANTOPRAZOLE 40 MG TABLET PO SCH ×2 (08:43→10:49)
[2020-06-11] MEDS: MUPIROCIN 2% OINT 22 GM TUBE TOP SCH (08:44)
[2020-06-11] MEDS: METOPROLOL SUCCINATE XL 25 MG TABLET PO SCH (10:46)
[2020-06-11] MEDS: BUDESONIDE/FORMOTEROL 160-4.5 INHALER 6 GM INH SCH (10:46)
[2020-06-11] MEDS: SERTRALINE 25 MG TABLET PO SCH (10:47)
[2020-06-11 10:48] VITALS: BP 131/79
== END 2020-06-11 09:30 | disposition hospice, home (50) ==
LOC: EDUNIT# → EDBD → N.ED 08:31 → N.EDINP 08:31 → N.3E 17:57
PROVIDERS: ADMIT Family Medicine; ATTEND Family Medicine